=== PATIENT | female | born 1960 | race Caucasian/White ===

== ENCOUNTER 2023-03-04 11:14 | Outpatient (CLI) | payer OTHER, SELFPAY ==
--- NOTE | ~2023-03-04 | XR_ITS ---
AP and lateral views of the right tibia/fibula Clinical History: Pain Findings: No acute fracture or dislocation is seen. Tibial intramedullary adriana with distal and proxima l interlocking screws is present. Old, healed fracture deformities of the distal fibular and tibial s hafts are present.. Joint spaces are preserved without significant erosive or degenerative change. So ft tissues are unremarkable. Impression: No acute abnormality. Old, healed fractures of the tibia and fibula, as noted above, with tibial orthopedic hardware in thony ce. Reviewed, dictated and finalized at location M. Impression: No acute abnormality. Old, healed fractures of the tibia and fibula, as noted above, with tibial orth opedic hardware in place.
--- NOTE | ~2023-03-04 | XR_ITS ---
Right Knee Technique: AP, lateral, and sunrise views were obtained. Clinical History: Pain Findings: No fracture or dislocation is seen. There is orthopedic hardware at the proximal tibia Osse ous alignment is anatomic. Joint spaces are preserved without degenerative or erosive change. Soft ti ssues are unremarkable. No joint effusion is seen. Impression: No acute abnormality. Orthopedic hardware the proximal tibia. Correlate with surgical history. Reviewed, dictated and finalized at location . Impression: No acute abnormality. Orthopedic hardware the proximal tibia. Correlate with surgical history.
[2023-03-04 19:02] LABS: Basophils Absolute Auto 0.1 K/mm3 (0.0-0.1); Basophils Percent Auto 1.1 % (0.2-1.2); Eosinophils Absolute Auto 0.1 K/mm3 (0-0.3); Eosinophils Percent Auto 1.3 % (0-4.4); Hematocrit 47.1 % (37.0-47.0); Hemoglobin 15.1 g/dL (12.0-15.0); Lymphocytes Absolute Auto 1.46 K/mm3 (0.9-3.2); Lymphocytes Percent Auto 31.3 % (18.3-44.2); Mean Corpuscular HGB Conc 32.1 g/dl (32-36); Mean Corpuscular Hemoglobin 29.4 pg (26-34); Mean Corpuscular Volume 91.6 fl (80-100); Mean Platelet Volume 10.4 fl (7.4-10.4); Monocytes Absolute Auto 0.5 K/mm3 (0.1-0.6); Monocytes Percent Auto 10.9 % (2.6-8.5); Neutrophils Absolute Auto 2.6 K/mm3 (1.3-6.7); Neutrophils Percent Auto 55.4 % (45.5-73.1); Platelet Count Result 209 k/mm3 (150-375); Red Blood Count 5.14 M/mm3 (4.2-5.4); Red Cell Distribution Width 13.9 % (11.5-14.5); White Blood Count 4.7 K/mm3 (4.5-10.0)
[2023-03-04 19:49] LABS: Alanine Aminotransferase 24 U/L (6-35); Albumin Level 4.8 g/dL (3.5-5.1); Alkaline Phosphatase 99 U/L (38-126); Anion Gap 7 mmol/L (8-16); Aspartate Amino Transferase 51 U/L (14-36); Bilirubin,Total 0.9 mg/dL (0.2-1.3); Blood Urea Nitrogen 10 mg/dL (7-17); Calcium 9.2 mg/dL (8.4-10.2); Carbon Dioxide 29 mmol/L (22-30); Chloride 100 mmol/L (98-107); Cholesterol 246 mg/dL (0-200); Estimated Glomerular Filt Rate > 60; Glucose 92 mg/dL (65-110); HDL Direct 55 mg/dL; Potassium 3.9 mmol/L (3.4-5.0); Sodium 136 mmol/L (137-145); Triglycerides 137 mg/dL (<150)
[2023-03-04 19:59] LABS: LDL Cholesterol Direct 139 mg/dL
[2023-03-04 22:04] LABS: Hemoglobin A1C 5.7 % (<5.7)
== END 2023-03-04 11:15 | disposition home or self-care (01) ==
LOC: ANHBWCLAB 11:15
PROVIDERS: PCP Family Medicine; Visit Provider Family Medicine
DX: M25.569 Pain in unspecified knee (principal); M89.8X6 Other specified disorders of bone, lower leg; R41.3 Other amnesia; R73.03 Prediabetes
CPT/HCPCS: 36415; 73562; 73590; 80053; 80061; 82607; 83036; 84443; 85025

== ENCOUNTER 2023-04-29 09:28 | Outpatient (CLI) | payer OTHER, SELFPAY ==
[2023-04-29 19:03] LABS: Basophils Absolute Auto 0.1 K/mm3 (0.0-0.1); Basophils Percent Auto 1.4 % (0.2-1.2); Eosinophils Absolute Auto 0.1 K/mm3 (0-0.3); Eosinophils Percent Auto 2.4 % (0-4.4); Hematocrit 45.9 % (37.0-47.0); Hemoglobin 14.6 g/dL (12.0-15.0); Immature Granulocyte Absolute 0.01 K/mm3 (0.00-0.031); Immature Granulocyte Percent A 0.2 % (0-0.5); Lymphocytes Absolute Auto 1.32 K/mm3 (0.9-3.2); Lymphocytes Percent Auto 31.1 % (18.3-44.2); Mean Corpuscular HGB Conc 31.8 g/dl (32-36); Mean Corpuscular Hemoglobin 28.9 pg (26-34); Mean Corpuscular Volume 90.9 fl (80-100); Mean Platelet Volume 10.3 fl (7.4-10.4); Monocytes Absolute Auto 0.5 K/mm3 (0.1-0.6); Monocytes Percent Auto 11.5 % (2.6-8.5); Neutrophils Absolute Auto 2.3 K/mm3 (1.3-6.7); Neutrophils Percent Auto 53.4 % (45.5-73.1); Platelet Count Result 192 k/mm3 (150-375); Red Blood Count 5.05 M/mm3 (4.2-5.4); Red Cell Distribution Width 14.1 % (11.5-14.5); White Blood Count 4.3 K/mm3 (4.5-10.0)
[2023-04-29 20:59] LABS: Alanine Aminotransferase 23 U/L (6-35); Albumin Level 4.2 g/dL (3.5-5.1); Alkaline Phosphatase 84 U/L (38-126); Aspartate Amino Transferase 47 U/L (14-36); Bilirubin,Total 0.6 mg/dL (0.2-1.3)
[2023-04-29 21:06] LABS: Iron 133 ug/dL (37-170)
[2023-04-29 21:16] LABS: Percent Iron Saturation 37 % (20-50)
== END 2023-04-29 09:29 | disposition home or self-care (01) ==
PROVIDERS: PCP Family Medicine; Visit Provider Family Medicine
DX: D75.1 Secondary polycythemia (principal); R74.01 Elevation of levels of liver transaminase levels; G62.9 Polyneuropathy, unspecified; R73.03 Prediabetes
CPT/HCPCS: 36415; 80076; 83540; 83550; 85025

== ENCOUNTER 2023-04-30 08:29 | Outpatient (CLI) | payer OTHER, SELFPAY ==
--- NOTE | ~2023-04-30 | US_ITS ---
US arterial ankle brachial ind INDICATION: Polyneuropathy TECHNIQUE: Segmental pressures and plethysmographic and Doppler waveforms of the brachial and lower e xtremity arteries were obtained. COMPARISON: None. FINDINGS: Right and left brachial artery pressures of 134 mm Hg and 135 mm Hg, respectively, are concordant (no rmal difference <= 30 mmHg). The right ankle-brachial index (BUZZ) is 1.06 (normal >= 0.9-1.0). The right great toe-brachial index (TBI) is 0.73 (normal >= 0.60). The left BUZZ is 1.19. The left TBI is 0.7. IMPRESSION: 1. Normal bilateral ankle and toe brachial indices. Reviewed, dictated and finalized at location L.
== END 2023-04-30 08:30 | disposition home or self-care (01) ==
PROVIDERS: PCP Family Medicine; Visit Provider Family Medicine
DX: G62.9 Polyneuropathy, unspecified (principal)
CPT/HCPCS: 93922

== ENCOUNTER 2023-06-24 16:45 | Emergency (ER) | payer MEDICARE, SELFPAY ==
--- NOTE | ~2023-06-24 | XR_ITS ---
EXAMINATION: XR foot RT min 3V DATE: 06/24/2023 17:15 INDICATION: Right foot injury. Fall. TECHNIQUE: 4 views of right foot were obtained. COMPARISON: None. FINDINGS: Bone alignment is normal. There is adriana and screw fixation of distal tibia and fibula. There is an old healed fracture of distal fibula. There is mild osteoarthritis of first metatarsophalangea l joint and some of the interphalangeal joints. There are enthesophytes at the posterior and plantar aspects of calcaneal tuberosity. IMPRESSION: 1. Mild polyarticular osteoarthritis. Reviewed, dictated and finalized at location A.
--- NOTE | ~2023-06-24 | XR_ITS ---
EXAM: XR knee RT min 4V DATE: 06/24/2023 17:16 HISTORY: fall . COMPARISON: None available. FINDINGS: Partially visualized uncomplicated appearing proximal tibial fixation hardware. Decreased mineralization. No fracture or dislocation. No lytic or blastic lesion. Joint spaces are maintained. No erosion or periosteal change. Soft tissues within normal limits. IMPRESSION: No acute osseous finding in the right knee. Reviewed, dictated and finalized at location K.
--- NOTE | ~2023-06-24 | XR_ITS ---
EXAM: XR wrist RT min 3V DATE: 06/24/2023 17:16 HISTORY: fall . COMPARISON: None available. FINDINGS: Normal mineralization. No fracture or dislocation. No lytic or blastic lesion. Partially v isualized uncomplicated appearing radial fixation hardware. Scattered degenerative changes. Slight po sitive ulnar variance. No erosion or periosteal change. Soft tissues within normal limits. IMPRESSION: No acute osseous finding in the right wrist. Reviewed, dictated and finalized at location K.
[2023-06-24 16:46] VITALS: BP 147/67; PULSE 74; RESP 18; TEMP 36.8; O2SAT 100
--- NOTE | 2023-06-24 17:35 | ED.GENADULT ---
HPI - General Adult General Chief complaint: Fall Stated complaint: fall/ right sided injuries Time Seen by Provider: 06/24/23 17:01 Source: patient Mode of arrival: ambulatory Limitations: no limitations History of Present Illness HPI narrative: This is a 62-year-old female who presents to the ED with chief complaint of a mechanical fall that occurred just prior to arrival this afternoon. Patient states that she was leaning over her 2 foot fence on her back patio and when she stepped over her foot got caught. She states that she fell onto the right side on the ground. She reports having right wrist pain, right knee pain, right foot pain. Reports that she was able to ambulate but it does cause pain. Denies numbness, weakness, further site of pain or injury Denies any LOC, head injury or blood thinner use. Related Data Home Medications Medication Instructions Recorded Confirmed tafluprost (PF) 0.0015 % eye drops 1 drp EACH EYE DAILY 06/05/23 in a dropperette (Zioptan (PF)) Allergies Allergy/AdvReac Type Severity Reaction Status Date / Time codeine Allergy Intermediate FAINTING Verified 06/05/23 10:45 procaine Allergy Intermediate Jittery Verified 06/05/23 10:45 pseudoephedrine Allergy Unknown DECONGESTANTS Verified 06/05/23 10:45 CAUSE RAPID HEART RATE meperidine AdvReac Intermediate NAUSEA/VOMI Verified 06/05/23 10:45 TING Review of Systems Review of Systems: All systems as dictated in HPI PMFSH Past Medical History Medical History (Updated 06/24/23 @ 18:14 by Leonard Pederson PA-C) History of vaginal delivery Primary open angle glaucoma Seasonal allergies Surgical History Surgical History (Updated 06/05/23 @ 10:50 by Margie Hernandez MA) History of ankle surgery History of dilation and curettage Hx of knee surgery [place] teeth removed Family History Family History Father Diabetes mellitus Grandparent Asthma Hypertension Heart disease Grandparent Depression Social History Social History (Updated 06/05/23 @ 10:50 by Margie Hernandez MA) Smoking status: Never smoker Alcohol intake: current Alcohol use details: wine Substance use: never Substance use type: does not use Lack of Transportation: No Lack of Food: Never True Current Housing: I Have Housing Concerned About Future Housing: No Difficulty Paying Gas/Electric Bills: No Difficulty Paying for Meds: No Currently Unemployed: No Education: Decline to Answer Difficulty w/ Childcare or Family Care: No Living arrangements: with family Occupation/Education: retired Gender identity (if verbalized by the patient): Female Sexual Orientation (if Verbalized by the Patient): Straight or Heterosexual Spiritual care concerns: No Exam Narrative: GENERAL: Well-appearing, well-nourished, and in no acute distress. HEAD: Normocephalic, atraumatic. EYES: PERRLA and EOMI. ENT: Nares clear, no rhinorrhea or epistaxis. Mucous membranes moist. Oropharynx without tonsillar hypertrophy exudate or other lesions. NECK: Supple. No adenopathy or masses. CHEST: No respiratory distress. Clear to auscultation. No wheezes rales or rhonchi HEART: Regular rate and rhythm. No murmur heard. Normal peripheral pulses. ABDOMEN: Soft, nontender, nondistended, normal active bowel sounds. MSK: RUE: Right wrist tenderness. No bruising or deformity. No anatomical snuffbox tenderness. Full range of motion of the right hand and wrist. LUE: Benign. RLE: Tenderness throughout the right right knee and dorsum of the right foot. No bruising or deformity throughout the lower extremity. Mild swelling at the knee. Full range of motion of the right knee and right ankle. LLE: Benign. SKIN: Mild abrasion to the left knee. Skin exam is otherwise intact with no bruising. NEURO: Alert and oriented x3. No focal deficits. PSYCH: Normal mood and
== END 2023-06-24 18:52 | disposition home or self-care (01) ==
PROVIDERS: Emergency Provider Physician Assistant; PCP Family Medicine
DX: S69.91XA Unspecified injury of right wrist, hand and finger(s), initial encounter (principal); S89.91XA Unspecified injury of right lower leg, initial encounter; S99.921A Unspecified injury of right foot, initial encounter; M19.071 Primary osteoarthritis, right ankle and foot; W18.09XA Striking against other object with subsequent fall, initial encounter
CPT/HCPCS: 73110; 73564; 73630; 99284

== ENCOUNTER 2023-08-23 01:26 | Day surgery (SDC) | payer MEDICARE, SELFPAY ==
[2023-08-14 13:46] VITALS: BMI 32.0
--- NOTE | 2023-08-22 15:27 | PM.HPGS ---
History of Present Illness History of Present Illness Consent: Risks, benefits, and alternatives have been discussed and questions answered. Patient agrees to proceed with procedure. Chief complaint: neoplasm screening Narrative: Lacey Madrigal is a 63 year old female Referred for colon cancer screening. Review of Systems Review of Systems: All systems reviewed & are unremarkable except as noted in HPI and below PMFSH Past Medical History Medical History History of vaginal delivery Primary open angle glaucoma Seasonal allergies Surgical History Surgical History History of ankle surgery History of dilation and curettage Hx of knee surgery [place] teeth removed Family History Family History Father Diabetes mellitus Grandparent Asthma Hypertension Heart disease Grandparent Depression Social History Social History Smoking packs per day: 1 Smoking cigarettes per day: 20.0 Years smoked: 2 Smoking pack-years: 2.00 Smoking status: Former smoker Alcohol intake: current Alcohol use details: 1 per month Substance use: never Substance use type: does not use Lack of Transportation: No Lack of Food: Never True Current Housing: I Have Housing Concerned About Future Housing: No Difficulty Paying Gas/Electric Bills: No Difficulty Paying for Meds: No Currently Unemployed: No Education: Decline to Answer Difficulty w/ Childcare or Family Care: No Living arrangements: with family Occupation/Education: retired Gender identity (if verbalized by the patient): Female Sexual Orientation (if Verbalized by the Patient): Straight or Heterosexual Spiritual care concerns: No Meds Home Medications and Allergies Home Medications Medication Instructions Recorded Confirmed Type tafluprost (PF) 0.0015 % eye drops 1 drp EACH EYE DAILY 06/05/23 08/14/23 History in a dropperette (Zioptan (PF)) ascorbic acid (vitamin C) 500 mg 500 mg PO DAILY 08/14/23 08/14/23 History tablet berberine-herbal comb no.18 capsule 1 cap PO DAILY 08/14/23 08/14/23 History cholecalciferol (vitamin D3) 50 50 mcg PO DAILY 08/14/23 08/14/23 History mcg (2,000 unit) capsule (Vitamin D3) tumeric 100 mg-francia 150 mg-olive 1 cap PO DAILY 08/14/23 08/14/23 History 50 mg-oreg 150 mg-caprylate capsule Allergies Allergy/AdvReac Type Severity Reaction Status Date / Time codeine Allergy Intermediate FAINTING Verified 08/23/23 11:13 procaine Allergy Intermediate Jittery Verified 08/23/23 11:13 pseudoephedrine Allergy Unknown DECONGESTANTS Verified 08/23/23 11:13 CAUSE RAPID HEART RATE lidocaine Allergy Jittery Verified 08/23/23 11:13 meperidine AdvReac Intermediate NAUSEA/VOMI Verified 08/23/23 11:13 TING Exam Resp: Auscultation: clear to auscultation bilaterally Cardio: Rate: regular rate Rhythm: regular rhythm GI: GI Palp: Yes Soft to palpation and No Tenderness to palpation present (GI) Assessment and Plan Assessment and plan (1) Colon cancer screening: Code(s): Z12.11 - Encounter for screening for malignant neoplasm of colon Status: Acute Assessment and Plan: Colonoscopy with possible biopsy or polypectomy or cautery or injection of substances.
[2023-08-23 11:17] VITALS: BP 141/78; PULSE 80; RESP 16; TEMP 36.4; O2SAT 98
[2023-08-23] MEDS: LACTATED RINGERS 1,000 ML 150 ML IV CONT (11:42)
--- NOTE | 2023-08-23 12:26 | WPDANESEPPF ---
Anes - Initial Pre Proc Eval Procedure: Operation Date: 08/23/23 12:30 Proposed Procedures p Screening Colonoscopy - Curt Thompson MD Date/Time: 08/23/23 12:26 Surgeon: Curt Thompson MD Pre Op Diagnosis: neoplasm screening Patient Data Age: 63 Gender: F Height: 1.6 m Weight: 78.6 kg Last Vital Signs Temp 97.6 F 08/23/23 11:17 Pulse 80 08/23/23 11:17 Resp 16 08/23/23 11:17 BP 141/78 H 08/23/23 11:17 Pulse Ox 98 08/23/23 11:17 O2 Del Method Room Air 08/23/23 11:17 Allergies Allergy/AdvReac Type Severity Reaction Status Date / Time codeine Allergy Intermediate FAINTING Verified 08/23/23 11:13 procaine Allergy Intermediate Jittery Verified 08/23/23 11:13 pseudoephedrine Allergy Unknown DECONGESTANTS Verified 08/23/23 11:13 CAUSE RAPID HEART RATE lidocaine Allergy Jittery Verified 08/23/23 11:13 meperidine AdvReac Intermediate NAUSEA/VOMI Verified 08/23/23 11:13 TING Home Medications Medication Instructions Recorded Confirmed Type tafluprost (PF) 0.0015 % eye drops 1 drp EACH EYE DAILY 06/05/23 08/14/23 History in a dropperette (Zioptan (PF)) ascorbic acid (vitamin C) 500 mg 500 mg PO DAILY 08/14/23 08/14/23 History tablet berberine-herbal comb no.18 capsule 1 cap PO DAILY 08/14/23 08/14/23 History cholecalciferol (vitamin D3) 50 50 mcg PO DAILY 08/14/23 08/14/23 History mcg (2,000 unit) capsule (Vitamin D3) tumeric 100 mg-francia 150 mg-olive 1 cap PO DAILY 08/14/23 08/14/23 History 50 mg-oreg 150 mg-caprylate capsule Patient hx anesthesia problems: none Family hx anesthesia problems: none Results Review: All pre-operative results and documents have been reviewed as part of the pre-operative evaluation. [facility] Past Medical History Medical History History of vaginal delivery Primary open angle glaucoma Seasonal allergies Surgical History Surgical History History of ankle surgery History of dilation and curettage Hx of knee surgery [place] teeth removed Family History Family History Father Diabetes mellitus Grandparent Asthma Hypertension Heart disease Grandparent Depression Social History Social History Smoking packs per day: 1 Smoking cigarettes per day: 20.0 Years smoked: 2 Smoking pack-years: 2.00 Smoking status: Former smoker Alcohol intake: current Alcohol use details: 1 per month Substance use: never Substance use type: does not use Lack of Transportation: No Lack of Food: Never True Current Housing: I Have Housing Concerned About Future Housing: No Difficulty Paying Gas/Electric Bills: No Difficulty Paying for Meds: No Currently Unemployed: No Education: Decline to Answer Difficulty w/ Childcare or Family Care: No Living arrangements: with family Occupation/Education: retired Gender identity (if verbalized by the patient): Female Sexual Orientation (if Verbalized by the Patient): Straight or Heterosexual Spiritual care concerns: No Anes - Eval Final PreProcedure Day of Procedure 08/23/23 12:26 Patient weight: obese Heart: regular rate and rhythm Lungs: clear to auscultation Airway: Mallampati scale class II Neurological: alert and oriented Last oral intake: >/= 8 hours ASA classification: III Emergent: no Anesthetic plan: proceed Anesthesia type and monitoring: general GIVS and standard monitoring Results Review: All pre-operative results and documents have been reviewed as part of the pre-operative evaluation. Informed Consent: The patient's anesthetic plan and its attendant risks and benefits were discussed with the patient/family/POA. Questions were solicited and answers provided to the satisfaction of the patient/family/POA.
[2023-08-23 12:47] VITALS: BP 87/45; PULSE 74; RESP 21; O2SAT 99
[2023-08-23 12:57] VITALS: BP 100/54; PULSE 75; RESP 18; O2SAT 100
[2023-08-23 13:07] VITALS: BP 101/59; PULSE 55; RESP 16; O2SAT 100
== END 2023-08-23 13:15 | disposition home or self-care (01) ==
PROVIDERS: PCP Family Medicine; Visit Provider Internal Medicine Gastroenterology
PROC: 0DJD8ZZ Inspection of Lower Intestinal Tract, Via Natural or Artificial Opening Endoscopic (ICD-10-PCS; CPT 45378; principal; 2023-08-23 12:30)
DX: Z12.11 Encounter for screening for malignant neoplasm of colon (principal); K64.8 Other hemorrhoids; K57.30 Diverticulosis of large intestine without perforation or abscess without bleeding; Z86.010 Personal history of colon polyps; H40.1190 Primary open-angle glaucoma, unspecified eye, stage unspecified; Z87.891 Personal history of nicotine dependence; E66.9 Obesity, unspecified; Z68.30 Body mass index [BMI] 30.0-30.9, adult
CPT/HCPCS: G0105; J2371; J2704; J7120

== ENCOUNTER 2023-11-04 10:17 | Outpatient (CLI) | payer MEDICARE, SELFPAY ==
--- NOTE | ~2023-11-04 | XR_ITS ---
Right foot Technique: AP, oblique, and lateral views were obtained. Clinical History: Pain Findings: No acute fracture or dislocation is seen. Osseous alignment is anatomic. Joint spaces are p reserved without erosive or degenerative change. Soft tissues are unremarkable. Impression: Unremarkable right foot radiographs. Reviewed, dictated and finalized at location . ING PULLER Impression: Unremarkable right foot radiographs.
[2023-11-04 19:46] LABS: Hematocrit 47.6 % (37.0-47.0); Mean Corpuscular HGB Conc 31.5 g/dl (32-36); Mean Corpuscular Hemoglobin 28.6 pg (26-34); Mean Corpuscular Volume 90.7 fl (80-100); Mean Platelet Volume 10.3 fl (7.4-10.4); Platelet Count Result 194 k/mm3 (150-375); Red Blood Count 5.25 M/mm3 (4.2-5.4); Red Cell Distribution Width 13.6 % (11.5-14.5); White Blood Count 4.9 K/mm3 (4.5-10.0)
[2023-11-04 20:24] LABS: Alanine Aminotransferase 40 U/L (6-35); Albumin Level 4.5 g/dL (3.5-5.1); Alkaline Phosphatase 112 U/L (38-126); Anion Gap 4 mmol/L (8-16); Aspartate Amino Transferase 43 U/L (14-36); Bilirubin,Total 0.8 mg/dL (0.2-1.3); Blood Urea Nitrogen 10 mg/dL (7-17); Calcium 9.5 mg/dL (8.4-10.2); Carbon Dioxide 29 mmol/L (22-30); Chloride 103 mmol/L (98-107); Estimated Glomerular Filt Rate > 60; Glucose 99 mg/dL (65-110); Potassium 4.6 mmol/L (3.4-5.0); Sodium 136 mmol/L (137-145)
[2023-11-04 20:29] LABS: Hepatitis B Surface Antigen Negative (Negative)
[2023-11-04 20:35] LABS: HAV RESULT Negative (Negative); Hepatitis B Core IgM Result Negative (Negative)
[2023-11-04 20:47] LABS: Hepatitis C Virus Antibody Negative (Negative)
== END 2023-11-04 10:18 | disposition home or self-care (01) ==
PROVIDERS: PCP Family Medicine; Visit Provider Family Medicine
DX: D75.1 Secondary polycythemia (principal); G62.9 Polyneuropathy, unspecified; R73.03 Prediabetes; R74.01 Elevation of levels of liver transaminase levels; Z98.890 Other specified postprocedural states; M79.671 Pain in right foot
CPT/HCPCS: 36415; 73630; 80053; 80074; 83036; 85027

== ENCOUNTER 2024-03-30 12:17 | Outpatient (CLI) | payer MEDICARE, SELFPAY ==
[2024-03-30 19:18] LABS: Hematocrit 47.5 % (37.0-47.0); Mean Corpuscular HGB Conc 31.6 g/dl (32-36); Mean Corpuscular Hemoglobin 28.8 pg (26-34); Mean Corpuscular Volume 91.2 fl (80-100); Mean Platelet Volume 10.4 fl (7.4-10.4); Platelet Count Result 193 k/mm3 (150-375); Red Blood Count 5.21 M/mm3 (4.2-5.4); Red Cell Distribution Width 14.1 % (11.5-14.5); White Blood Count 5.7 K/mm3 (4.5-10.0)
[2024-03-30 19:49] LABS: Alanine Aminotransferase 19 U/L (6-35); Albumin Level 4.8 g/dL (3.5-5.1); Alkaline Phosphatase 97 U/L (38-126); Anion Gap 6 mmol/L (4-12); Aspartate Amino Transferase 36 U/L (14-36); Blood Urea Nitrogen 12 mg/dL (7-17); Calcium 9.9 mg/dL (8.4-10.2); Carbon Dioxide 29 mmol/L (22-30); Chloride 103 mmol/L (98-107); Cholesterol 237 mg/dL (0-200); Estimated Glomerular Filt Rate > 60; Glucose 101 mg/dL (65-110); HDL Direct 66 mg/dL; Potassium 4.2 mmol/L (3.4-5.0); Sodium 138 mmol/L (137-145); Triglycerides 121 mg/dL (<150)
[2024-03-30 20:00] LABS: LDL Cholesterol Direct 139 mg/dL
[2024-03-30 20:29] LABS: Hemoglobin A1C 5.8 % (<5.7)
[2024-03-30 20:40] LABS: Vitamin D 25 Hydroxy 41.2 ng/mL
== END 2024-03-30 12:18 | disposition home or self-care (01) ==
PROVIDERS: PCP Family Medicine; Visit Provider Family Medicine
DX: D75.1 Secondary polycythemia (principal); G62.9 Polyneuropathy, unspecified; R00.2 Palpitations; R41.3 Other amnesia; R73.03 Prediabetes; R74.01 Elevation of levels of liver transaminase levels; Z00.00 Encounter for general adult medical examination without abnormal findings; E55.9 Vitamin D deficiency, unspecified
CPT/HCPCS: 36415; 80053; 80061; 82306; 83036; 85027

== ENCOUNTER 2024-04-30 15:13 | Outpatient (CLI) | payer MEDICARE, SELFPAY ==
--- NOTE | ~2024-04-30 | XR_ITS ---
Cervical Spine: AP, lateral, open-mouth views Clinical History: Pain Findings: There is straightening of the normal cervical lordosis. No fracture or subluxation seen. Th ere is moderate to advanced degenerative disc narrowing at C4-C5, C5-C6, C6-C7. There is moderate to advanced facet arthropathy throughout the cervical spine. Pre-vertebral soft tissues are unremarkable . Impression: Moderate degenerative spondylosis, as detailed above. Reviewed, dictated and finalized at location M. Impression: Moderate degenerative spondylosis, as detailed above.
--- NOTE | ~2024-04-30 | XR_ITS ---
Lumbosacral Spine: AP and lateral views Clinical History: Pain Findings: The normal lordotic curve is maintained. No fracture or subluxation seen. There is advanced degenerative disc narrowing at L4-L5. There is advanced facet arthropathy throughout the lumbar spin e. The sacroiliac joints are normally outlined. Impression: Diffuse, advanced facet arthropathy. Advanced degenerative disc narrowing at L4-L5. Reviewed, dictated and finalized at location . Impression: Diffuse, advanced facet arthropathy. Advanced degenerative disc narrowing at L4-L5.
--- NOTE | ~2024-04-30 | XR_ITS ---
AP and lateral views of the left hip Clinical history: Pain Findings: No acute fracture or dislocation is seen. Osseous alignment is anatomic. Bilateral hip and SI joint spaces are preserved. Soft tissues are unremarkable. Impression: No significant abnormality is seen. Reviewed, dictated and finalized at location . Impression: No significant abnormality is seen.
== END 2024-04-30 15:14 | disposition home or self-care (01) ==
PROVIDERS: PCP Family Medicine; Visit Provider Family Medicine
DX: G62.9 Polyneuropathy, unspecified (principal); R00.2 Palpitations; R41.3 Other amnesia; R73.03 Prediabetes; R74.01 Elevation of levels of liver transaminase levels; M54.2 Cervicalgia; D75.1 Secondary polycythemia
CPT/HCPCS: 72040; 72100; 73502

== ENCOUNTER 2024-07-29 11:45 | Outpatient (CLI) | payer MEDICARE, SELFPAY ==
--- NOTE | ~2024-07-29 | CT_ITS ---
EXAMINATION: CT cervical spine wo con DATE: 07/29/2024 11:59 INDICATION: Neck pain. TECHNIQUE: Computed tomography (CT) of the cervical spine was performed without intravenous contrast. Automated exposure control and iterative reconstruction technique were employed. The dose-length pro duct was 249.82 mGy-cm. COMPARISON: Cervical spine radiograph 04/30/2024 FINDINGS: There is 5 degrees levocurvature of cervical spine. There is hypolordosis of cervical spine . Vertebral body heights are normal. There is mildly decreased disc height at C4-C5 and moderately de creased disc height at C5-C6 and C6-C7. The following disc levels are specifically discussed: C2-C3: There is no uncovertebral joint osteoarthritis. There is moderate right and severe left facet joint osteoarthritis. There is mild left neural foraminal stenosis. There is no central canal stenosi s. C3-C4: There is mild bilateral uncovertebral joint osteoarthritis. There is severe bilateral facet carol int osteoarthritis. There is mild bilateral neural foraminal stenosis. There is no central canal sten osis. C4-C5: There is mild bilateral uncovertebral joint osteoarthritis. There is mild right and severe lef t facet joint osteoarthritis. There is mild left neural foraminal stenosis. There is no central canal stenosis. C5-C6: There is severe right and mild left uncovertebral joint osteoarthritis. There is severe bilate ral facet joint osteoarthritis. There is moderate right and mild left neural foraminal stenosis. Ther e is mild central canal stenosis. C6-C7: There is severe bilateral uncovertebral joint osteoarthritis. There is mild bilateral facet carol int osteoarthritis. There is mild bilateral neural foraminal stenosis. There is mild central canal st enosis. C7-T1: There is no uncovertebral joint osteoarthritis. There is moderate right and mild left facet carol int osteoarthritis. There is no neural foraminal stenosis. There is no central canal stenosis. IMPRESSION: 1. Moderate cervical spondylosis. Reviewed, dictated and finalized at location A.
== END 2024-07-29 11:46 | disposition home or self-care (01) ==
LOC: MICIMG 11:46
PROVIDERS: PCP Family Medicine; Visit Provider Family Medicine
DX: G62.9 Polyneuropathy, unspecified (principal); M47.892 Other spondylosis, cervical region
CPT/HCPCS: 72125

== ENCOUNTER 2024-11-09 12:39 | Outpatient (CLI) | payer MEDICARE, SELFPAY ==
--- NOTE | ~2024-11-09 | MR_ITS ---
EXAMINATION: MR knee RT wo con DATE: 11/09/2024 13:34 INDICATION: Right knee pain TECHNIQUE: Magnetic resonance imaging (MRI) of the right knee was performed without intravenous contr ast. Sequences included coronal PD-weighted FSE, coronal PD-weighted FS FSE, sagittal T2-weighted FS E, sagittal PD-weighted FS FSE, axial fluid sensitive FSE STIR and axial PD weighted fat saturated FS E. COMPARISON: Radiographs dated 06/24/2023 FINDINGS: Osseous/other: There is metallic magnetic field artifact associated with a lateral to medially directed fixation scr ew underlying the tibial plateau and an antegrade intramedullary adriana with pair of obliquely directed interlocking screws at the proximal metaphyseal region extending distally into the nonvisualized diap hysis. Bone alignment is normal. No fracture or pathologic marrow replacing process. There are foci o f susceptibility artifact indicates along the margin of the suprapatellar pouch likely related to denise or surgery. Medial compartment: Medial meniscus is normal. There is diffuse mild partial-thickness cartilage loss with smooth chondra l surface and without degenerative subchondral changes along the medial tibial plateau and the medial femoral condyle. Lateral compartment: Lateral meniscus is normal. Mild partial-thickness cartilage loss throughout the weightbearing latera l femoral condyle with mild chondral surface regularity anteromedially. Patellofemoral compartment: Articular cartilage is normal. Ligaments and tendons: Anterior and posterior cruciate ligaments are normal. The medial collateral ligament and fibular mukesh ateral ligament complex are normal. Mild distal quadriceps enthesopathy without tear. The patellar te ndon is normal. The visualized medial and lateral hamstring tendons as well as the iliotibial band ar e normal. Fluid: Physiologic amount of fluid in the joint space. No loose osteochondral bodies identified. IMPRESSION: 1. Mild osteoarthritis in medial and patellofemoral compartment 2. Postoperative changes with internal fixation at the right tibia presumably for fixation of an old healed tibial fracture. Reviewed, dictated and finalized at location B. ECTIONAL MAINTENANCE TECHNICIAN IMPRESSION: 1. Mild osteoarthritis in medial and patellofemoral compartment 2. Postoperative changes with internal fixation at the right tibia presumably f or fixation of an old healed tibial fracture.
== END 2024-11-09 12:40 | disposition home or self-care (01) ==
LOC: GOSHIMG 12:39
PROVIDERS: PCP Family Medicine; Visit Provider Family Medicine
DX: M17.11 Unilateral primary osteoarthritis, right knee (principal)
CPT/HCPCS: 73721

== ENCOUNTER 2024-11-09 12:40 | Outpatient (CLI) | payer MEDICARE, SELFPAY ==
--- NOTE | ~2024-11-09 | MR_ITS ---
EXAMINATION: MR lumbar spine wo con DATE: 11/09/2024 13:59 INDICATION: Radiculopathy, lumbar region. TECHNIQUE: Magnetic resonance imaging (MRI) of the lumbar spine was performed without intravenous con trast. Sequences included sagittal T2-weighted FSE, sagittal T2-weighted FS FSE, sagittal T1-weighted FSE, and axial T2-weighted FSE. COMPARISON: Lumbar spine radiograph 04/30/2024 FINDINGS: There is 3 degrees dextrocurvature of lumbar spine. Vertebral body heights are normal. Ther e is moderately decreased disc height at L4-L5. The distal spinal cord signal intensity is normal. Th e conus medullaris is at L1. The following disc levels are specifically discussed: L1-L2: The disc does not extend beyond the endplate margin. There is mild bilateral facet joint osteo arthritis. There is no neural foraminal stenosis. There is no central canal stenosis. L2-L3: The disc is mildly bulging. There is mild bilateral facet joint osteoarthritis. There is mild bilateral neural foraminal stenosis. There is no central canal stenosis. L3-L4: The disc is bulging. There is severe right and moderate left facet joint osteoarthritis. There is mild lateral neural foraminal stenosis. There is mild central canal stenosis. L4-L5: The disc is bulging and has an annular fissure. There is mild bilateral facet joint osteoarthr itis. There is mild bilateral neural foraminal stenosis. There is mild central canal stenosis. L5-S1: The disc does not extend beyond the endplate margin. There is moderate right and severe left f acet joint osteoarthritis. There is no neural foraminal stenosis. There is no central canal stenosis. IMPRESSION: 1. Moderate lumbar spondylosis. Reviewed, dictated and finalized at location A. ICAL WRITER
--- NOTE | ~2024-11-09 | MR_ITS ---
EXAMINATION: MR cervical spine wo con DATE: 11/09/2024 13:53 INDICATION: Radiculopathy, cervical region. TECHNIQUE: Magnetic resonance imaging (MRI) of the cervical spine was performed without intravenous c ontrast. Sequences included sagittal T2-weighted FSE, sagittal T2-weighted FS FSE, sagittal T1-weight ed FSE, axial MERGE, and axial T2-weighted FSE. COMPARISON: Cervical spine CT 07/29/2024 FINDINGS: There is 2 mm retrolisthesis of C5 on C6. Vertebral body heights are normal. There is mildl y decreased disc height at C5-C6 and moderately decreased disc height at C6-C7. The spinal cord signa l intensity is normal. The following disc levels are specifically discussed: C2-C3: The disc does not extend beyond the endplate margin. There is no uncovertebral joint osteoarth ritis. There is mild right and severe left facet joint osteoarthritis. There is mild left neural fora ethan stenosis. There is no central canal stenosis. C3-C4: The disc does not extend beyond the endplate margin. There is no uncovertebral joint osteoarth ritis. There is mild right and severe left facet joint osteoarthritis. There is mild left neural fora ethan stenosis. There is no central canal stenosis. C4-C5: The disc does not extend beyond the endplate margin. There is mild bilateral uncovertebral kasi nt osteoarthritis. There is severe left facet joint osteoarthritis. There is mild left neural foramin al stenosis. There is no central canal stenosis. C5-C6: The disc is bulging. There is severe bilateral uncovertebral joint osteoarthritis. There is mi ld bilateral facet joint osteoarthritis. There is severe right and moderate left neural foraminal mauri nosis. There is mild central canal stenosis. C6-C7: The disc is bulging. There is severe bilateral uncovertebral joint osteoarthritis. There is mi ld bilateral facet joint osteoarthritis. There is moderate bilateral neural foraminal stenosis. There is mild central canal stenosis. C7-T1: The disc does not extend beyond the endplate margin. There is no uncovertebral joint osteoarth ritis. There is mild right facet joint osteoarthritis. There is no neural foraminal stenosis. There i s no central canal stenosis. IMPRESSION: 1. Moderate cervical spondylosis. Reviewed, dictated and finalized at location A. [facility] [employer]
== END 2024-11-09 12:41 | disposition home or self-care (01) ==
LOC: GOSHIMG 12:42
PROVIDERS: Visit Provider Family Medicine
DX: M47.812 Spondylosis without myelopathy or radiculopathy, cervical region (principal); M47.816 Spondylosis without myelopathy or radiculopathy, lumbar region
CPT/HCPCS: 72141; 72148

== ENCOUNTER 2025-03-05 10:23 | Emergency (ER) | payer MEDICARE, SELFPAY ==
--- OUTSIDE RECORDS SUMMARY | 2025-03-05 10:29 | XMS_ITS | Referral Summary ---
Author Organization [place] [address] [place] [address] [address] [place] [address] Care Team Providers Care Yarn Mercerizer Operator Name Role Phone Jordan Thapa MD Unavailable [phone] Danielle Talbot OD Unavailable [phone] Lennox Alcala MD Unavailable [phone] Alexys Barr DC Unavailable Karla Alva MD Unavailable [phone] Jalen Gastelum MD Primary Care Provider [phone] Encounters Date Type Department Care Team Description 03/01/[address] [facility] Cardiology [address] [place] [address] [address] [place] [address] Sandie Lucio MD 02/15/2025 Results Follow-Up [facility] [address] [place] [address] [address] [place] [address] Sandie Lucio MD 02/11/2025 11:00 AM CDT Ancillary Procedure [facility] Cardiology at [address] [place] [address] History of mitral valve prolapse; Palpitations 02/08/2025 Telephone [facility] [address] [place] [address] [address] [place] [address] Sandie Lucio MD 02/05/[address] [facility] [address] [place] [address] Avis Montgomery RN 01/06/2025 1:15 PM EXECUTIVE CYBER LEADER Office Visit [facility] Cardiology [address] [place] [address] Sandie Lucio MD History of mitral valve prolapse (Primary Dx); Atypical chest pain; Hyperlipidemia LDL goal <100; Prediabetes; Palpitations from Last 3 Months Allergies Active Allergy Reactions Criticality Noted Date Comments Codeine Unknown Low Can take Hydrocodone; Doesn't recall reaction to Codeine Decongestant Allergy Decongestant Tablet Palpitations Medium 07/31/2023 Excedrin Ib Palpitations Low 11/14/2015 Lidocaine Dizziness High 05/20/2023 Meperidine Nausea only Low Preservative Other (See comments) Low Eyedrop/ preservative dries eye out Medications cholecalciferol , vitamin D3, (VITAMIN D3 ORAL)Indication s:prevent vitamin d deficiency Take 1 tablet by mouth every morning Active ascorbic acid (VITAMIN C ORAL)Indication s:Boost immune system Take 550 mg by mouth daily before lunch Melaluca brand- also had ecchinacia in it Active herbal drugs tablet Take by mouth Berberine 1 cap by mouth every morning (to clean cholesterol out of body) Active MAGNESIUM CHLORIDE ORAL Take 1,000 mg by mouth nightly Active TURMERIC ORALIndications :Pain Take 1 tablet by mouth daily as needed (Pain) Turmeric 500mg with Curcummin 500 mg Active aspirin 325 mg Take 1 tablet (325 mg total) by mouth daily as needed for pain Active latanoprost, PF, 0.005 % dropperetteIndi cations:ocular hypertension Administer 1 drop into both eyes nightly 30 each 11 10/28/20 23 Active aspirin 81 mg enteric coated tabletIndicatio ns:Atypical chest pain Take 1 tablet (81 mg total) by mouth daily 30 tablet 11 01/06/20 25 026 Active tafluprost (Zioptan, PF,) 0.0015 % dropperette INSTILL 1 DROP INTO EACH EYE FOR 3 DAYS THEN OFF FOR 2 DAYS. 60 each 03/01/20 25 Active tafluprost (Zioptan, PF,) 0.0015 % dropperette Instill 1 drop both eyes for 3 days then off for 2 days 55 each 3 10/17/20 23 025 Discontinued Active Problems Problem Noted Date Diagnosed Date Prediabetes 01/06/2025 Hyperlipidemia LDL goal <100 01/06/2025 History of mitral valve prolapse 01/06/2025 Palpitations 01/06/2025 Vision loss, bilateral 03/18/2024 Assessment & Plan (04/07/2024 5:17 PM CDT): History of bilateral and unilateral visual disturbance. Her ocular examination is unremarkable. Patient educated that this is likely vascular in nature, ie vertebrobasilar insufficiency. Pt ed to time future episodes, pt ed 20 min duration, monocular vision changes is c/w ophthalmic migraine. Patient educated on findings. Reviewed signs and symptoms of amaurosis in to see or urgent care if noted. Basal cell carcinoma (BCC) of left lower eyelid 07/31/2023 Assessment & Plan (10/01/2023 3:36 PM EXECUTIVE CYBER LEADER): Lacey Waters is doing well after Left Lower Eyelid Reconstruction - Left on 08/02/2023. She demonstrates excellent healing and has been released from my care and will follow up as needed. She has been instructed to continue comprehensive eye care and dermatology follow-up. Lesion of left lower eyelid 05/22/2023 Assessment & Plan (05/23/2023 5:21 PM CDT): Awaiting path report. Follow as scheduled with Dr. Darden Assessment & Plan (05/22/2023 6:27 PM CDT): Risks, benefits and alternatives were discussed. Risks included but were not limited to pain, bleeding, scarring, recurrence, and possible need for additional procedures. Following this discussion, the patient wishes to proceed with left lower lid (LLL) lesion excision and biopsy. This was performed today without any complications. We discussed the potential for this to represent a basal cell carcinoma (BCC) and we discussed the protocol for Mohs and same-day reconstruction following Mohs. We will contact the patient with the biopsy results and coordinate accordingly. Lesion of nose 03/05/2023 Assessment & Plan (03/05/2023 4:16 PM CDT): Some features concerning for basal cell carcinoma (BCC) on the left lateral aspect of her nose/LLL (where glasses nosepads rest) She has a smaller non pigmented lesion along the left nasolabial fold, recommend evaluation with Dr. Darden Subjective visual disturbance of right eye 07/02 Assessment & Plan (07/02/2022 3:44 PM CDT): Likely refractive vs early cataract/ mild epiretinal membrane (ERM) right eye (OD). PH did improve visual acuity (VA), so rec new refraction/ glasses. If no improvement (NI), consider retinal consult. Dry eye syndrome of both eyes 07/02/2022 Assessment & Plan (07/02/2022 3:49 PM CDT): Try oil based pres-free artif tear. Use as often as needed. Diverticulitis 03/29/2022 Assessment & Plan (03/29/2022 1:07 PM CDT): Liquid diet x 3 days; broth at the most. zofran PRN for nausea Stay hydrated CT ordered, as soon as we can get. Cipro and Flagyl course sent; if not tolerated, we can switch to Augmentin Epiretinal membrane (ERM) of right eye Assessment & Plan (07/02/2022 3:47 PM CDT): Order OCT today. Minimal. Monitor. If refraction does not improve subjective visual acuity (VA), consider retinal consult. 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 Glaucoma suspect of both eyes 07/13/2019 Assessment & Plan (04/07/2024 5:15 PM CDT): IOPs adequate, CPM Assessment & Plan (07/13/2019 1:23 PM CDT): Based on c:d and hx of oc htn. No e/o progressive disease. CPM with zioptan QHS OU. Impaired glucose tolerance 04/10/2018 Overview (04/10/2018): Prediabetes; Comments: OAC 01/28/2016 - Assessment & Plan (05/24/2021 3:57 PM CDT): Awaiting hemoglobin A1c Combined forms of age-related cataract of both e yes 07/17/2016 Assessment & Plan (04/07/2024 5:15 PM CDT): Defer cataract surgery until signs and symptoms indicate. Pt was educated on the diagnosis. Recommend daily UV protection. RTC 12 mo/sooner with any visual changes. Assessment & Plan (08/03/2021 11:16 AM CDT): No indication for surgery at this time. Pt to see outside provider for updated SRx. Assessment & Plan (07/31/2020 5:55 AM CDT): best-corrected visual acuity (BVA) remains good. Pt ed. Stressed importance of UV eye protection. Assessment & Plan (07/13/2019 1:24 PM CDT): Stable. Observe. Obtain SRx at [facility]. Pure hypercholesterolemia 04/03/2014 Overview (02/20/2017): PURE HYPERCHOLESTEROLEM Assessment & Plan (12/02/2021 1:18 PM EXECUTIVE CYBER LEADER): BP borderline Cholesterol has increased mildly. Reticence to take rx noted. Will look into berberine supplement. Recommend also a bit more effort on lowering simple carbohydrates and fats in diet Assessment & Plan (05/24/2021 3:57 PM CDT): Awaiting labs Age-related macular degeneration 04/03/2014 Overview (02/21/2017): MACULAR DEGENERATION NOS Borderline glaucoma with ocular hypertension 05/2011 Overview (08/03/2021): - per pt, intraocular pressure (IOP) in high 20 low 30s? Prior to tx - h/o normal OCT RNFL and full Alva visual field (HVF) - intraocular pressure (IOP) acceptable on 1 agent Assessment & Plan (05/23/2023 5:22 PM CDT): Visual field (VF) re-assuring. CPM. Assessment & Plan (05/14/2023 9:21 AM CDT): IOPs adequate for RNFL/optic nerve (ON), CPM, Alva visual field (HVF) next visit Assessment & Plan (07/02/2022 3:46 PM CDT): Order Alva visual field (HVF) today. Discussed options. Pt will ct zioptan nightly, 3 days on, 2 days off. Assessment & Plan (08/03/2021 11:26 AM CDT): Pt ed. IOPs at good range. Normal OCT RNFL today. Continue Zioptan Q3 days in a row, then off two, weekly. No FHx. Monitor annually. Assessment & Plan (07/31/2020 5:58 AM CDT): Test results re-assuring today - normal OCT and Alva visual field (HVF). Pt ed. IOPs at good range. Continue Zioptan Q3 days in a row, then off two, weekly. No FHx. Monitor annually. Assessment & Plan (07/13/2019 1:23 PM CDT): Hx of oc htn. IOP acceptable today on 1 class. No e/o progressive optic neuropathy. No need for further intervention. Discussed trial of xelpros but pt elects to stay with zioptan. CPM with zioptan 1gtt ou qhs. F/u in 1 year for annual exam and repeat testing. Borderline glaucoma with ocular hypertension 05/2011 Overview (05/23/2023): - per pt, intraocular pressure (IOP) in high 20 low 30s? Prior to tx - h/o normal OCT RNFL and full Alva visual field (HVF) - intraocular pressure (IOP) acceptable on 1 agent Last Assessment & Plan: Order Alva visual field (HVF) today. Discussed options. Pt will ct zioptan nightly, 3 days on, 2 days off. Resolved Problems Problem Noted Date Diagnosed Date Resolved Date Sinusitis 04/03/2014 04/10/2018 Overview (02/20/2017): Allergic sinusitis Back disorder 04/03/2014 04/10/2018 Overview (02/20/2017): BACK DISORDER NOS Immunizations Immunization Administration Dates Next Due Influenza, Split 09/21/2010 Influenza, Trivalent, IM (MDV) 09/28/2013,2008 Influenza, Unspecified 11/18/2021(Deferr ed: Patient Refused),11/18/2020(Deferred: Patient Refused),08/18/2020(Deferred: Patient Refused),08/18/2019(Deferred: Patient Refused) Tdap 09/07/2015,12/22/2010 Social History Tobacco Use Types Packs/Day Years Used Date Smoking Tobacco: Former Cigarettes Q uit: 1981 Passive Smoke Exposure: Never Smokeless Tobacco: Never Tobacco Cessation:Counseling Given: Not Answered Alcohol Use Standard Drinks/Week Comments No 0 (1 standard drink = 0.6 oz pur e alcohol) Humiliation, Afraid, Rape, and Kick questionnair e Answer Date Recorded Within the last year, have y ou been afraid of your partner or ex-partner? No 11/22/2020 Within the last year, have y ou been humiliated or emotionally abused in other ways by your partner or ex-partner? No Within the last year, have y ou been kicked, hit, slapped, or otherwise physically hurt by your partner or ex-partner? No 11/22/2020 Within the last year, have y ou been raped or forced to have any kind of sexual activity by your partner or ex-partner? No 11/22/2020 Social Connection and Isolat ion Panel [NHANES] Answer Date Recorded In a typical week, how many times do you talk on the phone with family, friends, or neighbors? More than three times a week 11/22/2020 How often do you get togethe r with friends or relatives? Once a week 11/22/2020 How often do you attend chur or synagogue services? More than 4 times per year 11/22/2020 Do you belong to any clubs o r organizations such as baptism groups, unions, fraternal or athletic groups, or school groups? No 11/22/2020 How often do you attend meet ings of the clubs or organizations you belong to? Never 11/22/2020 Are you , , di vorced, , never , or living with a partner? 11/22/2020 AUDIT-C Answer Date Recorded Q1: How often do you have a drink containing alc ohol? Monthly or less 08/02/2023 Q2: How many drinks containi ng alcohol do you have on a typical day when you are drinking? 1 or 2 08/02/2023 Q3: How often do you have si x or more drinks on one occasion? Never 08/02/2023 Overall Financial Resource Strain (CARDIA) Answe r Date Recorded How hard is it for you to pa y for the very basics like food, housing, medical care, and heating? Not hard at all 11/22/2020 PHQ-2 Answer Date Recorded PHQ-2 Total Score (If total score is 3 or more points, staff should administer the PHQ-9) 0 06/28[facility]2022 [facility] Answer Date Recorded Do you feel stress - tense, restless, nervous, or anxious, or unable to sleep at night because your mind is troubled all the time - these days? Not at all 11/22/2020 Exercise Vital Sign Answer Date Recorde d On average, how many days pe r week do you engage in moderate to strenuous exercise (like a brisk walk)? 0 days Minutes of Exercise per Session Not on file 11/22/2020 Hunger Vital Sign Answer Date Recorded Within the past 12 months, y ou worried that your food would run out before you got the money to buy more. Never true 11/22/19 21 Within the past 12 months, t he food you bought just didn't last and you didn't have money to get more. Never true 11/22/2020 PRAPARE - Transportation Answer Date Re corded In the past 12 months, has l ack of transportation kept you from medical appointments or from getting medications? No 03/2021 In the past 12 months, has l ack of transportation kept you from meetings, work, or from getting things needed for daily living? No 11/22/2020 Personal Safety Answer Date Recorded Have you ever been in or are you currently in a harmful physical or emotional relationship or is someone making you feel afraid or unsafe? Denies 08/02/2023 Education Answer Date Recorded What is the highest level of school you have completed or the highest degree you have received? High school graduate 11/22/2020 Comments No Sex and Gender Information Value Date Recorded Sex Assigned at Not on file Legal Sex Female 12:19 AM EXECUTIVE CYBER LEADER Gender Identity Not on file Sexual Orientation Not on file Last Filed Vital Signs Vital Sign Reading Time Taken Comments Blood Pressure 120/70 01/06/2025 1:17 PM EXECUTIVE CYBER LEADER Pulse 69 01/06/2025 1:17 PM EXECUTIVE CYBER LEADER Temperature 36.1 C (97 F) 08/02/2023 2:10 PM CDT Respiratory Rate 17 08/02/2023 2:10 PM CDT Oxygen Saturation 97% 01/06/2025 1:17 PM EXECUTIVE CYBER LEADER Inhaled Oxygen Concentration - - Weight 80.3 kg (177 lb) 01/06/2025 1:17 PM EXECUTIVE CYBER LEADER Height 160 cm (5' 3 ) 01/06/2025 1:17 PM EXECUTIVE CYBER LEADER Body Mass Index 31.35 01/06/2025 1:17 PM EXECUTIVE CYBER LEADER Plan of Treatment Not on file Procedures Procedure Name Priority Date/Time Associated Diagnosis Comments TRANSTHORACIC ECHO (TTE) COMPLETE W DOPPLER/CF WO CONTRAST Routine 02/11/2025 11:18 AM CDT History of mitral valve prolapse Palpitations ELECTROCARDIOGRAM REPORT Routine 025 2:23 PM EXECUTIVE CYBER LEADER Atypical chest pain Palpitations POCT LIPID PANEL Routine 01/06/2025 1:19 PM EXECUTIVE CYBER LEADER Hyperlipidemia LDL goal <100 SCREENING MAMMOGRAM BILATERAL W DAO Schedule Routine, Read Routine (OP Routine) 08/27/2023 4:30 PM CDT Screening mammogram, encounter for HEPATITIS C ANTIBODY Routine 11/23/2020 9:43 AM EXECUTIVE CYBER LEADER COLONOSCOPY Routine 05/31/2017 from Last 3 Months or Most Recently Relevant to Health Maintenance Results * TRANSTHORACIC ECHO (TTE) COMPLETE W DOPPLER/CF WO CONTRAST (02/11/2025 11:18 AM CDT) LV EF 60 % CONS SCIMAGE Anatomical Region Laterality Modality Ultrasound 02/11/2025 10:4 7 AM CDT Narrative 02/12/2025 7:[address] [facility] Cardiology [address], [address], [place] [address] P:[phone] P:[phone] Echocardiographic Report Patient Name: LACEY WATERS L : 1960 Study Date: 02/11/2025 10:47:20 AM Gender: F Tech: Location: [facility] Ref Provider: SANDIE LUCIO Height(Cm): 160 BSA: 1.89 Weight(Kg): 80.3 Heart Rate: 77 BP: 120 / 70 Quality: Good Order Provider: SANDIE LUCIO PROCEDURES: Echocardiographic Report: Transthoracic echocardiogram with complete 2D, M-Mode, and color Doppler examination. With Strain Analysis. INDICATIONS: History of Mitral Valve Prolapse and R00.2 Palpitations. MEASUREMENTS: 2D/MM Value Range Doppler Value Range EF Mod BP 65 % [ 54 - 74 ] FELISHA Vmax 2.31 cm2 [ 2.00 - 4.00 ] EF Teich MM 57 % [ 54 - 74 ] AV Mean PG 4 mmHg Estimated EF 60 % AV Peak Manas 1.41 m/s [ 1.00 - 1.70 ] LVIDd 2D 4.91 cm [ 3.80 - 5.20 ] AV Peak PG 8 mmHg LVIDd MM 5.32 cm [ 3.80 - 5.20 ] AV VTI 29.54 cm LVIDs 2D 2.74 cm [ 2.20 - 3.50 ] LVOT Diam 2.04 cm [ 1.70 - 2.10 ] LVIDs MM 3.70 cm [ 2.20 - 3.50 ] LVOT Peak Manas 0.91 m/s [ 0.70 - 1.10 ] LVPWd 2D 0.97 cm [ 0.60 - 0.90 ] LVOT VTI 22.00 cm LVPWd MM 0.92 cm [ 0.60 - 0.90 ] MV E Peak Manas 0.71 m/s [ 0.60 - 1.30 ] IVSd 2D 0.65 cm [ 0.60 - 0.90 ] MV A Peak Manas 0.95 m/s [ 1.00 - 1.20 ] IVSd MM 0.97 cm [ 0.60 - 0.90 ] MV Decel Time 229 msec [ 104 - 258 ] LA Dimension MM 3.38 cm [ 2.70 - 3.80 ] PV Peak Manas 0.98 m/s [ 0.40 - 0.80 ] AoR Diam MM 3.08 cm [ 2.70 - 3.70 ] TR Peak Manas 2.43 m/s [ 1.00 - 2.80 ] LA Volume Index 20 cc/m2 [ 16 - 34 ] TR Peak PG 24 mmHg RVSP 32.00 mmHg [ 10.00 - 36.00 ] Lateral E` 0.07 m/s [ 0.10 - 0.15 ] E/E` 10 2D/MM Value Range Doppler Value Range - FINDINGS: Interpretation Site: Exam was interpreted at [facility]. Left Ventricle: Normal left ventricular size. Normal global left ventricular systolic function. Impaired diastolic relaxation Grade I. Ejection fraction is measured at 65 %. Ejection Fraction is visually estimated to be 60 %. Global Longitudinal Strain is -21 %. Right Ventricle: Normal right ventricular size. Left Atrium: The left atrium is normal in size. Right Atrium: The right atrium is normal in size. Atrial Septum: Normal atrial septum. Mitral Valve: Mild mitral valve prolapse involving the posterior mitral valve. Mild mitral valve regurgitation. Aortic Valve: Normal appearance of the aortic valve. Tricuspid Valve: Normal appearance of the tricuspid valve. Estimated peak RVSP is 32 mmHg. Pulmonic Valve: Normal appearance of the pulmonic valve. Pericardium: Normal pericardium with no significant pericardial effusion. Aorta: Normal aortic root. IVC: Normal size and normal respiratory collapse consistent with normal right atrial pressure (<5 mmHg). Pulmonary Artery: Normal pulmonary artery size. CONCLUSIONS: Normal left ventricular size. Normal global left ventricular systolic function. Impaired diastolic relaxation Grade I. Ejection fraction is measured at 65 %. Ejection Fraction is visually estimated to be 60 %. Global Longitudinal Strain is -21 %. The left atrium is normal in size. Mild mitral valve prolapse involving the posterior mitral valve leaflet. Mild mitral valve regurgitation. Electronically Signed By: Lennox Alcala MD, [facility] 02/12/2025 7:02:49 AM CDT Procedure Note Lennox Alcala MD - 02/12/2025 [facility] Cardiology [facility] [address], [address], [place] [address] P:[phone] P:[phone] Echocardiographic Report Patient Name: LACEY WATERS L : 1960 Study Date: 02/11/2025 10:47:20 AM Gender: F Tech: Location: [facility] Ref Provider: SANDIE LUCIO Height(Cm): 160 BSA: 1.89 Weight(Kg): 80.3 Heart Rate: 77 BP: 120 / 70 Quality: Good Order Provider: SANDIE LUCIO PROCEDURES: Echocardiographic Report: Transthoracic echocardiogram with complete 2D, M-Mode, and color Dopplerexamination. With Strain Analysis. INDICATIONS: History of Mitral Valve Prolapse and R00.2 Palpitations. MEASUREMENTS: 2D/MM Value Range Doppler ValueRange EF Mod BP 65 % [ 54 - 74 ] FELISHA Vmax 2.31cm2 [ 2.00 - 4.00 ] EF Teich MM 57 % [ 54 - 74 ] AV Mean PG 4mmHg Estimated EF 60 % AV Peak Manas 1.41m/s [ 1.00 - 1.70 ] LVIDd 2D 4.91 cm [ 3.80 - 5.20 ] AV Peak PG 8mmHg LVIDd MM 5.32 cm [ 3.80 - 5.20 ] AV VTI 29.54cm LVIDs 2D 2.74 cm [ 2.20 - 3.50 ] LVOT Diam 2.04 cm[ 1.70 - 2.10 ] LVIDs MM 3.70 cm [ 2.20 - 3.50 ] LVOT Peak Manas 0.91m/s [ 0.70 - 1.10 ] LVPWd 2D 0.97 cm [ 0.60 - 0.90 ] LVOT VTI 22.00cm LVPWd MM 0.92 cm [ 0.60 - 0.90 ] MV E Peak Manas 0.71m/s [ 0.60 - 1.30 ] IVSd 2D 0.65 cm [ 0.60 - 0.90 ] MV A Peak Manas 0.95m/s [ 1.00 - 1.20 ] IVSd MM 0.97 cm [ 0.60 - 0.90 ] MV Decel Time 229msec [ 104 - 258 ] LA Dimension MM 3.38 cm [ 2.70 - 3.80 ] PV Peak Manas 0.98m/s [ 0.40 - 0.80 ] AoR Diam MM 3.08 cm [ 2.70 - 3.70 ] TR Peak Manas 2.43m/s [ 1.00 - 2.80 ] LA Volume Index 20 cc/m2 [ 16 - 34 ] TR Peak PG 24mmHg RVSP 32.00 mmHg [ 10.00 - 36.00 ] Lateral E` 0.07 m/s [ 0.10 - 0.15 ] E/E` 10 2D/MM Value Range Doppler ValueRange - FINDINGS: Interpretation Site: Exam was interpreted at [facility]. Left Ventricle: Normal left ventricular size. Normal global left ventricular systolicfunction. Impaired diastolic relaxation Grade I. Ejection fraction is measured at 65 %.Ejection Fraction is visually estimated to be 60 %. Global Longitudinal Strain is -21 %. Right Ventricle: Normal right ventricular size. Left Atrium: The left atrium is normal in size. Right Atrium: The right atrium is normal in size. Atrial Septum: Normal atrial septum. Mitral Valve: Mild mitral valve prolapse involving the posterior mitral valve. Mildmitral valve regurgitation. Aortic Valve: Normal appearance of the aortic valve. Tricuspid Valve: Normal appearance of the tricuspid valve. Estimated peak RVSP is 32mmHg. Pulmonic Valve: Normal appearance of the pulmonic valve. Pericardium: Normal pericardium with no significant pericardial effusion. Aorta: Normal aortic root. IVC: Normal size and normal respiratory collapse consistent with normal rightatrial pressure (<5 mmHg). Pulmonary Artery: Normal pulmonary artery size. CONCLUSIONS: Normal left ventricular size. Normal global left ventricular systolicfunction. Impaired diastolic relaxation Grade I. Ejection fraction is measured at 65 %.Ejection Fraction is visually estimated to be 60 %. Global Longitudinal Strain is -21 %. The left atrium is normal in size. Mild mitral valve prolapse involving the posterior mitral valve leaflet.Mild mitral valve regurgitation. Electronically Signed By: Lennox Alcala MD, [facility] 02/12/2025 7:02:49 AM CDT Sandie Lucio MD CV ECHO PROCEDURES Final Result * Electrocardiogram Report (01/06/2025 2:23 PM EXECUTIVE CYBER LEADER) Sandie Lucio MD ECG ORDERABLES Final Res ult * POCT lipid panel (01/06/2025 1:19 PM EXECUTIVE CYBER LEADER) Cholesterol, POC 243 mg/dL HDL, POC 57 mg/dL Triglycerides, POC 169 mg/dL LDL Cholesterol POC 152 mg/dL Chol/HDL Ratio, POC 2.7 Non-HDL Cholesterol, POC 186 mg/dL Cholesterol Total, POC 243 mg/dL Capillary blood 01/06/2025 1 :19 PM EXECUTIVE CYBER LEADER Sandie Lucio MD POINT OF CARE TEST ORDERA BLES Final Result * Screening Mammogram Bilateral W Dao (08/27/2023 4:30 PM CDT) Anatomical Region Laterality Modality Breast Bilateral Mammography 08/28/2023 8:19 AM CDT Impressions 08/28/2023 8:19 AM CDT There is no mammographic evidence of malignancy. A 1 year screening mammogram is recommended. BI-RADS: 2 - Benign. The patient has been or will be contacted. The patient will be entered into a reminder system with a target due date of 1 year for her next mammogram. Electronically signed by: Sandie Rivera M.D. Narrative 08/28/2023 8:19 AM CDT EXAMINATION: SCREENING MAMMOGRAM BILATERAL W DAO ORDERING HEALTHCARE PROVIDER: SELF SCREENING MAMMOGRAM HISTORY: Routine screening mammography. COMPARISON: 07/27/2022, 05/02/2021, 04/24/2018 TECHNIQUE: CC and MLO views of the bilateral breasts were obtained with digital technique using breast tomosynthesis with C view. Computer aided detection was utilized. FINDINGS: DENSITY: There are scattered fibroglandular elements in the bilateral breasts. BREASTS: There are benign-appearing scattered calcifications in both breasts. There is no new suspicious finding in either breast on mammogram. Self Screening Mammogram IMG MAMMO PROCEDURES Fi nal Result * Hepatitis C antibody (11/23/2020 9:43 AM EXECUTIVE CYBER LEADER) Hep C Ab NON-REACTI VE NON-REACT HELGA [facility] SIGNAL TO CUT-OFF 0.01 <1.00 [facility] Comment: HCV antibody was non-reactive. There is no laboratory evidence of HCV infection. In most cases, no further action is required. However, if recent HCV exposure is suspected, a test for HCV RNA (test code 70461) is suggested. For additional information please refer to http://education.[employer]/faq/VMO72u1 (This link is being provided for informational/ educational purposes only.) 11/23/2020 9:43 AM EXECUTIVE CYBER LEADER 11/23/2020 9:44 AM EXECUTIVE CYBER LEADER Narrative [facility] - 11/24/2020 10:20 AM EXECUTIVE CYBER LEADER FASTING:YES FASTING: YES Dusty Rose MD LAB MICROBIOLOGY - GENERAL ORDERABLES Final Result Performing Organization Address City/State/[facility] Co ma Phone Number JULIO CESAR [facility] [address] [place] [address] * Colonoscopy (05/31/2017) Anatomical Region Laterality Modality Other Narrative 05/31/[address] Franki Thapa M.D. Historical Provider ENDOSCOPY PROCEDURES Madhuri l Result from Last 3 Months or Most Recently Relevant to Health Maintenance Insurance [facility] HMO [facility] MEDICARE [facility] MEDICARE Care Teams Yarn Mercerizer Operator Relationship Specialty Start Date End Date Jalen Gastelum MD [address] [address] PCP - General Family Practice 03/05/23 Jordan Thapa MD [address] [address] Consulting Physician Gastroenterology 04/10/18 Danielle Talbot OD [address] [address] Optometry 11/28/21 Lennox Alcala MD [address] [phone] Consulting Physician Cardiology 11/28/21 Alexys Barr DC [address] [place] [address] Consulting Physician Chiropractic Medicine 11/28/21 Karla Alva MD [address] [address] Surgeon Glaucoma Ophthalmology 06/28/22
--- OUTSIDE RECORDS SUMMARY | 2025-03-05 10:29 | XMS_ITS | Encounter Summary ---
Author Organization [facility] Address [address] [facility] [address] [place] [address] Care Team Providers Care Certified Control Systems Technician Name Role Phone Dusty Rose MD Primary Care Provider [phone] Dusty Rose MD Primary Care Provider Jordan Thapa MD Unavailable [phone] Danielle Talbot OD Unavailable [phone] Lennox Alcala MD Unavailable [phone] Alexys Barr DC Unavailable [phone] Karla Alva MD Unavailable [phone] Jalen Gastelum MD Primary Care Provider [phone] Encounter Details Date Type Department Care Team (Late st Contact Info) Description 05/16/2007 Orders Only [facility] Provider, MD Rosie [address] [place] [address] Social History Tobacco Use Types Packs/Day Years Used Date Smoking Tobacco: Never Assessed Comments Unknown Sex and Gender Information Value Date Recorded Sex Assigned at Not on file Legal Sex Female 12:19 AM STAFF ENGINEER Gender Identity Not on file Sexual Orientation Not on file documented as of this encounter Plan of Treatment Not on file documented as of this encounter Procedures Procedure Name Priority Date/Time Associated Diagnosis Comments CARDIOLOGY REPORT 05/16/2007 documented in this encounter Results * CARDIOLOGY REPORT (05/16/2007) Anatomical Region Laterality Modality Other Narrative 05/16/2007 Ordered by an unspecified provider. us Historical Provider CV CARDIAC SERVICES ALIE MCKEON Final Result documented in this encounter Visit Diagnoses Not on filedocumented in this encounter Care Teams Certified Control Systems Technician Relationship Specialty Start Date End Date Dusty Rose MD PCP - General 04/21/08 03/04/23 Dusty Rose MD PCP - General 02/12/07 04/20/08 [place] [address] [place] [id number] PCP - General Family Practice 03/05/23 Jordan Thapa MD [address] [address] Consulting Physician Gastroenterology 04/10/18 Danielle Talbot OD [address] [address] Optometry 11/28/21 Lennox Alcala MD [address] [address] Consulting Physician Cardiology 11/28/21 Alexys Barr DC [address] [place] [id number] Consulting Physician Chiropractic Medicine 11/28/21 Karla Alva MD [address] [place] [id number] Surgeon Glaucoma Ophthalmology 06/28/22 documented as of this encounter
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
--- OUTSIDE RECORDS SUMMARY | 2025-03-05 10:29 | XMS_ITS | Encounter Summary ---
Author Organization [facility] Address [address] [facility] [address] [place] [address] Care Team Providers Care Bight Maker Name Role Phone Dusty Rose MD Primary Care Provider [phone] Jordan Thapa MD Unavailable [phone] Danielle Talbot OD Unavailable [phone] Lennox Alcala MD Unavailable [phone] Alexys Barr DC Unavailable Karla Alva MD Unavailable [phone] Jalen Gastelum MD Primary Care Provider [phone] Encounter Details Date Type Department Care Team (Late st Contact Info) Description 09/11/2011 Orders Only [facility] ProviderRosie MD [address] [place] [address] Social History Tobacco Use Types Packs/Day Years Used Date Smoking Tobacco: Never Assessed Comments Unknown Sex and Gender Information Value Date Recorded Sex Assigned at Not on file Legal Sex Female 12:19 AM MATHEMATICAL ENGINEER Gender Identity Not on file Sexual Orientation Not on file documented as of this encounter Plan of Treatment Not on file documented as of this encounter Procedures Procedure Name Priority Date/Time Associated Diagnosis Comments CARDIOLOGY REPORT 09/11/2011 documented in this encounter Results * CARDIOLOGY REPORT (09/11/2011) Anatomical Region Laterality Modality Other Narrative 09/11/2011 Ordered by an unspecified provider. Historical Provider [facility] C[facility]AC [facility] PROCE MIKE Final Result documented in this encounter Visit Diagnoses Not on filedocumented in this encounter Care Teams Bight Maker Relationship Specialty Start Date End Date Dusty Rose MD PCP - General 04/21/08 03/04/23 Jalen Gastelum MD [address] [phone] PCP - General Family Practice 03/05/23 Jordan Thapa MD [address] [address] Consulting Physician Gastroenterology 04/10/18 Danielle Talbot, ROSY [address] [address] Optometry 11/28/21 Lennox Alcala MD [address] [phone] Consulting Physician Cardiology 11/28/21 Alexys Barr DC [address] [place], [place] [phone] Consulting Physician Chiropractic Medicine 11/28/21 Karla Alva MD [address] [address] Surgeon Glaucoma Ophthalmology 06/28/22 documented as of this encounter
--- OUTSIDE RECORDS SUMMARY | 2025-03-05 10:29 | XMS_ITS | Encounter Summary ---
Author Organization [facility] Address [address] [facility] [address] [place] [address] Care Team Providers Care Board Finisher Name Role Phone Dusty Rose MD Primary Care Provider [phone] Jordan Thapa MD Unavailable [phone] Danielle Talbot OD Unavailable [phone] Lennox Alcala MD Unavailable [phone] Alexys Barr DC Unavailable [phone] Karla Alva MD Unavailable [phone] Jalen Gastelum MD Primary Care Provider [phone] Encounter Details Date Type Department Care Team (Late st Contact Info) Description 02/17/2013 Orders Only [facility] ProviderRosie MD [address] [place] [address] Social History Tobacco Use Types Packs/Day Years Used Date Smoking Tobacco: Never Assessed Comments Unknown Sex and Gender Information Value Date Recorded Sex Assigned at Not on file Legal Sex Female 12:19 AM GRIDDLE ATTENDANT Gender Identity Not on file Sexual Orientation Not on file documented as of this encounter Plan of Treatment Not on file documented as of this encounter Procedures Procedure Name Priority Date/Time Associated Diagnosis Comments CARDIOLOGY REPORT 02/17/2013 documented in this encounter Results * CARDIOLOGY REPORT (02/17/2013) Anatomical Region Laterality Modality Other Narrative 02/17/2013 Ordered by an unspecified provider. Historical Provider CV CARDIAC SERVICES PROCE MIKE Final Result documented in this encounter Visit Diagnoses Not on filedocumented in this encounter Care Teams Board Finisher Relationship Specialty Start Date End Date Dusty Rose MD PCP - General 04/21/08 03/04/23 Jalen Gastelum MD [address] [id number] PCP - General Family Practice 03/05/23 Jordan Thapa MD [address] [address] Consulting Physician Gastroenterology 04/10/18 Danielle Talbot, ROSY [address] [address] Optometry 11/28/21 Lennox Alcala MD [address] [phone] Consulting Physician Cardiology 11/28/21 Alexys Barr DC [address] [place], [place] [phone] Consulting Physician Chiropractic Medicine 11/28/21 Karla Alva MD [address] [address] Surgeon Glaucoma Ophthalmology 06/28/22 documented as of this encounter
--- OUTSIDE RECORDS SUMMARY | 2025-03-05 10:30 | XMS_ITS | Encounter Summary ---
Author Organization [facility] Address [address] [facility] [address] [place] [address] Care Team Providers Care Parts Clerk Name Role Phone Dusty Rose MD Primary Care Provider [phone] Jordan Thapa MD Unavailable [phone] Danielle Talbot OD Unavailable [phone] Lennox Alcala MD Unavailable [phone] Alexys Barr DC Unavailable [phone] Karla Alva MD Unavailable [phone] Jalen Gastelum MD Primary Care Provider [phone] Encounter Details Date Type Department Care Team (Late st Contact Info) Description 02/04/2015 Orders Only [facility] Provider, MD Rosie [address] [place] [address] Social History Tobacco Use Types Packs/Day Years Used Date Smoking Tobacco: Former Alcohol Use Standard Drinks/Week Comments No 0 (1 standard drink = 0.6 oz pur e alcohol) Comments Unknown Sex and Gender Information Value Date Recorded Sex Assigned at Not on file Legal Sex Female 12:19 AM COMMUNITY SERVICE AIDE Gender Identity Not on file Sexual Orientation Not on file documented as of this encounter Plan of Treatment Not on file documented as of this encounter Procedures Procedure Name Priority Date/Time Associated Diagnosis Comments CARDIOLOGY REPORT 02/04/2015 documented in this encounter Results * CARDIOLOGY REPORT (02/04/2015) Anatomical Region Laterality Modality Other Narrative 02/04/2015 Ordered by an unspecified provider. us Historical Provider [facility] CARDIAC SERVICES ALIE MCKEON Final Result documented in this encounter Visit Diagnoses Not on filedocumented in this encounter Care Teams Parts Clerk Relationship Specialty Start Date End Date Dusty Rose MD PCP - General 04/21/08 03/04/23 Jalen Gastelum MD [address] [phone] PCP - General Family Practice 03/05/23 Jordan Thapa MD [address] [facility] [address] [place] [address] Consulting Physician Gastroenterology 04/10/18 Danielle Talbot, ROSY [address] [facility] [address] [place] [address] Optometry 11/28/21 Lennox Alcala MD [address] [place] [address] Consulting Physician Cardiology 11/28/21 Alexys Barr DC 4225 [place] [address] Consulting Physician Chiropractic Medicine 11/28/21 Karla Alva MD [address] [address] Surgeon Glaucoma Ophthalmology 06/28/22 documented as of this encounter
--- OUTSIDE RECORDS SUMMARY | 2025-03-05 10:30 | XMS_ITS | Clinical Summary ---
Author Organization [facility] Address [address] [place] [address] Care Team Providers Care Hay Stacker Name Role Phone Dusty Rose MD Primary Care Provider Allergies Active Allergy Reactions Criticality Noted Date Comments Aller-Chlor Decongestant Other (See Comments) 1 Anesthetics - Amide Type - Select Amino Amides Other (See Comments) 09/04/2022 Codeine Other (See Comments) 09/04/2022 Decongest Palpitations Low 11/14/2015 Excedrin Ib Palpitations Low 11/14/2015 Medications tafluprost (ZIOPTAN) 0.0015 % Dropperette solution by Ophthalmic route. Active lidocaine 1 % (XYLOCAINE) Solution lidocaine (PF) 10 mg/mL (1 %) injection solution In office injection administered by the provider Active triamcinolone acetonide (KENALOG-10) 10 mg/mL Suspension Kenalog 10 mg/mL suspension for injection In office injection administered by the provider Active traMADoL (ULTRAM) 50 mg tabletIndicatio ns:Arthritis of right knee Take 1 Tablet (50 mg) by mouth every 6 hours as needed for Pain, Severe. 15 Tablet 3 Active Active Problems Problem Noted Date Diagnosed Date Lesion of left lower eyelid 05/22/2023 Overview (06/25/2023): Last Assessment & Plan: Awaiting path report. Follow as scheduled with Dr. Darden Lesion of nose 03/05/2023 Overview (06/25/2023): Last Assessment & Plan: Some features concerning for basal cell carcinoma (BCC) on the left lateral aspect of her nose/LLL (where glasses nosepads rest) She has a smaller non pigmented lesion along the left nasolabial fold, recommend evaluation with Dr. Darden Dry eye syndrome of both eyes 07/02/2022 Overview (09/04/2022): Last Assessment & Plan: Try oil based pres-free artif tear. Use as often as needed. Subjective visual disturbance of right eye 07/02 Overview (09/04/2022): Last Assessment & Plan: Likely refractive vs early cataract/ mild epiretinal membrane (ERM) right eye (OD). PH did improve visual acuity (VA), so rec new refraction/ glasses. If no improvement (NI), consider retinal consult. Diverticulitis 03/29/2022 Overview (09/04/2022): Last Assessment & Plan: Liquid diet x 3 days; broth at the most. zofran PRN for nausea Stay hydrated CT ordered, as soon as we can get. Cipro and Flagyl course sent; if not tolerated, we can switch to Augmentin Epiretinal membrane (ERM) of right eye Overview (09/04/2022): Last Assessment & Plan: Order OCT today. Minimal. Monitor. If refraction does not improve subjective visual acuity (VA), consider retinal consult. Other chest pain 03/30/2021 Acquired trigger finger 11/22/2020 Brachial neuritis 11/22/2020 Disorder of bursae of shoulder region 11/22/2020 Full thickness rotator cuff tear 11/22/2020 Shoulder joint pain 11/22/2020 Refraction disorder 07/31/2020 Overview (09/04/2022): Last Assessment & Plan: Release updated glasses Rx, minimal change from hab, pt ed. Impaired glucose tolerance 04/10/2018 Overview (09/04/2022): Prediabetes; Comments: OAC 01/28/2016 - Last Assessment & Plan: Awaiting hemoglobin A1c Combined forms of age-related cataract of both e yes 07/17/2016 Overview (09/04/2022): Last Assessment & Plan: No indication for surgery at this time. Pt to see outside provider for updated SRx. Age-related macular degeneration 04/03/2014 Overview (09/04/2022): MACULAR DEGENERATION NOS Pure hypercholesterolemia 04/03/2014 Overview (09/04/2022): PURE HYPERCHOLESTEROLEM Last Assessment & Plan: BP borderline Cholesterol has increased mildly. Reticence to take rx noted. Will look into berberine supplement. Recommend also a bit more effort on lowering simple carbohydrates and fats in diet Borderline glaucoma with ocular hypertension 05/2011 Overview (09/04/2022): - per pt, intraocular pressure (IOP) in high 20 low 30s? Prior to tx - h/o normal OCT RNFL and full Alva visual field (HVF) - intraocular pressure (IOP) acceptable on 1 agent Last Assessment & Plan: Order Alva visual field (HVF) today. Discussed options. Pt will ct zioptan nightly, 3 days on, 2 days off. Family History Medical History Relation Name Comments Arthritis-osteo Father Hypertension Father Arthritis-osteo Maternal Aunt Heart Disease Maternal Aunt Hypertension Maternal Aunt Stroke Maternal Aunt Arthritis-osteo Maternal Grandfather Heart Disease Maternal Grandfather Arthritis-osteo Maternal Grandmother Heart Disease Maternal Grandmother Arthritis-osteo Mother Arthritis-osteo Paternal Grandfather Arthritis-osteo Paternal Grandmother Relation Name Status Comments Father Maternal Aunt Maternal Grandfather Maternal Grandmother Mother Paternal Grandfather Paternal Grandmother Social History Tobacco Use Types Packs/Day Years Used Date Smoking Tobacco: Never Smokeless Tobacco: Never Tobacco Cessation:Counseling Given: Not Answered Alcohol Use Standard Drinks/Week Comments No 0 (1 standard drink = 0.6 oz pur e alcohol) Comments No Sex and Gender Information Value Date Recorded Sex Assigned at Not on file 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 Gender Identity Not on file Sexual Orientation Not on file Last Filed Vital Signs Vital Sign Reading Time Taken Comments Blood Pressure 110/60 06/25/2023 9:50 AM CDT Pulse 78 07/26/2016 2:17 PM CDT Temperature - - Respiratory Rate 98 07/26/2016 2:17 PM CDT Oxygen Saturation - - Inhaled Oxygen Concentration - - Weight 80.7 kg (178 lb) 06/25/2023 9:50 AM CDT Height 160 cm (5' 3 ) 06/25/2023 9:50 AM CDT Body Mass Index 31.53 06/25/2023 9:50 AM CDT Plan of Treatment Health Maintenance Due Date Last Done Comments COLORECTAL SCREENING 2003 Colorectal Cancer Screening 2003 FIT-DNA Q 3 years 2003 FIT/FOBT Q 1 year 2003 Flex Sig/CT Colonography Q 5 years 2003 PNEUMOCOCCAL VACCINE 50+ YEA RS (1 of 1 - PCV) 2008 ZOSTER VACCINE (1 of 2) 2008 OSTEOPOROSIS SCREENING 2023 BREAST CANCER SCREENING 07/27/2023 07/27/20 22, 07/27/2022, 05/02/2021, Additional history exists INFLUENZA VACCINE (#1) 2024 09/28/2013, 2008 DTAP/TDAP/TD VACCINES (3 - T d or Tdap) 09/07/2025 09/07/2015, 12/22/2010 RSV VACCINE (60+ or ) (1 - 1-dose 75+ series) 2033 Insurance [employer] PPO MCR Care Teams Hay Stacker Relationship Specialty Start Date End Date Dusty Rose MD PCP - General Family Practice 11/14/15
--- OUTSIDE RECORDS SUMMARY | 2025-03-05 10:30 | XMS_ITS | Encounter Summary ---
Author Organization [facility] Healthcare Address [address] [place] [address] Care Team Providers Care Shift Lab Technician Name Role Phone Jordan Thapa MD Unavailable [phone] Danielle Talbot OD Unavailable [phone] Lennox Alcala MD Unavailable [phone] Alexys Barr DC Unavailable [phone] Karla Alva MD Unavailable [phone] Jalen Gastelum MD Primary Care Provider [phone] Encounter Details Date Type Department Care Team (Late st Contact Info) Description 02/15/2025 Results Follow-Up [facility] Cardiology [address] [place] [address] Tomer Lucio MD [address] [place] [id number] Social History Tobacco Use Types Packs/Day Years Used Date Smoking Tobacco: Former Cigarettes Q uit: 1980 Passive Smoke Exposure: Never Smokeless Tobacco: Never Alcohol Use Standard Drinks/Week Comments No 0 [...] How often do you attend chur or confucianism services? More than 4 times per year 11/22/2020 Do you belong to any clubs o r organizations such as temple groups, unions, fraternal or athletic groups, or [...] staff should administer the PHQ-9) 0 06/28/2022 [facility] - Occupational Stress [...] on file Legal Sex Female 12:19 AM MEDICAL RECORDS SECRETARY Gender Identity Not on file Sexual Orientation Not on file documented as of this encounter Plan of Treatment Not on file documented as of this encounter Visit Diagnoses Not on filedocumented in this encounter Care Teams Shift Lab Technician Relationship Specialty Start Date End Date Jalen Gastelum MD [address] [facility] [address] [place] [address] PCP - General Family Practice 03/05/23 Jordan Thapa MD [address] [address] Consulting Physician Gastroenterology 04/10/18 Danielle Talbot OD [address] [address] Optometry 11/28/21 Lennox Alcala MD [address] [place] [address] [address] [place] [address] Consulting Physician Cardiology 11/28/21 Aleyxs Barr DC [address] [place] [address] Consulting Physician Chiropractic Medicine 11/28/21 Karla Alva MD [address] [facility] [address] [place] [address] Surgeon Glaucoma Ophthalmology 06/28/22 documented as of this encounter
--- OUTSIDE RECORDS SUMMARY | 2025-03-05 10:32 | XMS_ITS | Encounter Summary ---
Author Organization [facility] Healthcare Address [address] [place] [address] Care Team Providers Care Etcher Photoengraving Name Role Phone Jordan Thapa MD Unavailable [phone] Danielle Talbot OD Unavailable [phone] Lennox Alcala MD Unavailable [phone] Alexys Barr DC Unavailable [phone] Karla Alva MD Unavailable [phone] Jalen Gastelum MD Primary Care Provider [phone] Encounter Details Date Type Department Care Team (Late st Contact Info) Description 03/05/2025 Telephone [facility] Imaging [address] [place] [address] Avis Montgomery RN Social History Tobacco Use Types Packs/Day Years [...] How often do you attend chur or faith services? 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 Gender Identity Not on file Sexual Orientation Not on file documented as of this encounter Plan of Treatment Not on file documented as of this encounter Visit Diagnoses Not on filedocumented in this encounter Care Teams Etcher Photoengraving Relationship Specialty Start Date End Date Jalen Gastelum MD [address] [address] PCP - General Family Practice 03/05/23 Jordan Thapa MD [address] [address] Consulting Physician Gastroenterology 04/10/18 Danielle Talbot OD [address] [address] Optometry 11/28/21 Lennox Alcala MD [address] [place] [address] Consulting Physician Cardiology 11/28/21 Alexys Barr DC [address] [place] [address] Consulting Physician Chiropractic Medicine 11/28/21 Karla Alva MD [address] [facility] [address] [place] [address] Surgeon Glaucoma Ophthalmology 06/28/22 documented as of this encounter
[2025-03-05 10:34] VITALS: BP 146/84; PULSE 70; RESP 16; TEMP 36.6; O2SAT 100
--- NOTE | 2025-03-05 10:39 | ED_ITS ---
HPI - Skin/Abscess/Foreign Bdy General Chief complaint: Skin/Abscess/Foreign Body Stated complaint: Skin Problem Source: patient, RN notes reviewed and old records reviewed Mode of arrival: ambulatory Limitations: no limitations History of Present Illness HPI narrative: 64 year old female who presents to [facility] care with complaints of having red pustule type of lesions to the area in from of her right ear since Saturday which are itchy and also have some discomfort to area. Patient has some small red dots on area of right neck with no pustules noted. Patient reports that she has itching to her breast and to scapular region with no rash or lesions noted. complaint: rash Onset (ago): day(s) (has been within past 72 hours) Location: face (in front of right ear) and neck (right) Severity: mild Quality: aching and pruritic Pain Consistency: colicky Treatments prior to arrival: none Related Data Home Medications ?Medication ?Instructions ?Recorded ?Confirmed ?Last Taken ?Type tafluprost (PF) 0.0015 % eye drops 1 drp EACH EYE DAILY 06/05/23 07/02/24 Unknown History in a dropperette (Zioptan (PF)) Allergies Allergy/AdvReac Type Severity Reaction Status Date / Time codeine Allergy Intermediate FAINTING Verified 03/05/25 10:39 hydrocodone Allergy Intermediate heart Verified 03/05/25 10:39 racing procaine Allergy Intermediate Jittery Verified 03/05/25 10:39 pseudoephedrine Allergy Unknown DECONGESTANTS Verified 03/05/25 10:39 CAUSE RAPID HEART RATE lidocaine Allergy Jittery Verified 03/05/25 10:39 meperidine AdvReac Intermediate NAUSEA/VOMI Verified 03/05/25 10:39 TING all decongestatnts AdvReac Intermediate Chest Pain Uncoded 03/05/25 10:39 Review of Systems Review of Systems: CONSTITUTIONAL: Denies fever, chills, or sweats. CARDIOVASCULAR: Denies chest pain, palpitations, or edema. RESPIRATORY: Denies cough or dyspnea. SKIN: Reports red pustule rash to area of nieto in front of right ear that are linear with itching and with mild discomfort reports itching to right neck right scapula area and right breast with no lesions noted MUSCULOSKELETAL: Denies joint pain or myalgia. NEUROLOGIC: Denies headache, numbness, or weakness. All systems reviewed & are unremarkable except as noted in HPI and below PMFSH Past Medical History Medical History History of vaginal delivery Seasonal allergies Primary open angle glaucoma Surgical History Surgical History History of dilation and curettage History of ankle surgery [place] teeth removed Hx of knee surgery Family History Family History Father Diabetes mellitus Grandparent Asthma Hypertension Heart disease Grandparent Depression Social History Social History Smoking packs per day: 1 Smoking cigarettes per day: 20.0 Years smoked: 2 Smoking pack-years: 2.00 Smoking status: Former smoker Alcohol intake: current Alcohol use details: 1 per month Substance use: never Substance use type: does not use Lack of Transportation: No Lack of Food: Never True Current Housing: I Have Housing Concerned About Future Housing: No Difficulty Paying Gas/Electric Bills: No Difficulty Paying for Meds: No Currently Unemployed: No Education: Decline to Answer Difficulty w/ Childcare or Family Care: No Living arrangements: with family Occupation/Education: retired Gender identity (if verbalized by the patient): Female Sexual Orientation (if Verbalized by the Patient): Straight or Heterosexual Spiritual care concerns: No Comments At time of signature, agree with nursing past medical, surgical, social and family history. There is no relevant family history pertinent to the presenting complaint Exam Narrative: GENERAL: Well-appearing, well-nourished, and in no acute distress. HEAD: Normocephalic, atraumatic. EYES: PERRLA, conjunctivae clear, and EOMI. ENT: Mucous membranes moist. Oropharynx without edema, erythema or lesions. NECK: Supple. No lymphadenopathy CHEST: Clear to auscultation. No respiratory distress.SAO2 100% on room air HEART: Regular rate and rhythm. SKIN: Warm, dry.? Linear pustules to area in front of right ear with number increasing with pain and itching to area three small red spots also on neck. Patient reports itching to right breast with no lesions and itching to back scapula area with no lesions noted. NEURO:? Alert and oriented x3. PSYCH: Normal mood and affect Course Course Emergency Course: Patient is aware of diagnosis, understands and agrees to treatment plan.? Anticipatory guidance given.? Patient agrees to follow-up as directed and is aware of reasons to seek care at the emergency department. Portions of this record may have been created with voice recognition software Level of Care: Express Care Visit Vital Signs Vital signs: Vital Signs Temperature 36.6 C 03/05/25 10:34 Pulse Rate 70 03/05/25 10:34 Respiratory Rate 16 03/05/25 10:34 Blood Pressure 146/84 H 03/05/25 10:34 Pulse Oximetry 100 03/05/25 10:34 Oxygen Delivery Room Air 03/05/25 10:34 Temperature 36.6 C 03/05/25 10:34 Pulse Rate 70 03/05/25 10:34 Respiratory Rate 16 03/05/25 10:34 Blood Pressure 146/84 H 03/05/25 10:34 Pulse Oximetry 100 03/05/25 10:34 Oxygen Delivery Room Air 03/05/25 10:34 Reviewed MDM - Skin/Abscess/Foreign Bdy MDM Narrative Medical decision making narrative: Does not appear at this time to be erythema multiforme, bullous, SJS, TEN; no evidence at this time to suggest RMSF, endocarditis or Lyme disease; patient looks well, nontoxic and is tolerating oral intake; no neurologic signs or symptoms; no headache, photophobia or neck pain; afebrile; appropriate for initial outpatient treatment; discussed the importance of follow-up, patient agrees; question, viral exanthema, contact dermatitis, allergic dermatitis, eczema, urticaria, [ xx ]. No soft palate or uvula edema, no tongue, lip edema or other mucosal involvement, no respiratory compromise, no stridor, no wheezing, no wheezing, no history of syncope, no hypotension, no nausea, vomiting, or diarrhea.? Instructed patient to go to nearest ER immediately for any worsening symptoms including but not limited to: fever, spreading rash, pain, sore throat, headache, dizziness, chest pain, trouble breathing, or any symptoms concerning to the patient. Differential Diagnosis Differential diagnosis: Likely urticaria, herpes zoster, cellulitis, contact dermatitis and other (shingle rash) Medical Records Attestation: I reviewed the patient's medical records. Critical Care Time Critical Care Time Critical Care Time: No Discharge Plan Discharge Clinical Impression: Shingles rash Qualifiers: Herpes zoster complications: without complications Qualified Code(s): B02.9 - Zoster without complications Patient Disposition: Home Condition: Stable Instructions: Antibiotic Form, Shingles (ED) Additional Instructions: Apply lidocaine ointment to rash in front of right ear up to 4 times daily watch for any increasing infection--redness, swelling, drainage Tylenol Ibuprofen or Naproxen for pain follow up with PCP in 7-10 days for a wound check recheck if develop fever, chills, increasing symptom Go to the ER if your symptoms become worse of if ANY new symptoms develop Valtrex antiviral dosing as ordered If your symptoms persist, change or worsen significantly before you can contact your personal physician then please, without delay, go to the emergency department for further evaluation. Follow-up with PCP in 7-10 days or sooner if needed Follow up with PCP soon in regards to your blood pressure which is elevated above threshold for referral. Blood pressure above 120/80 may indicate pre-hypertension. Patient Language: Finnish Prescriptions: New valacyclovir 1 gram tablet 1,000 mg PO Q8H Qty: 21 0RF No Action tafluprost (PF) [Zioptan (PF)] 0.0015 % dropperette 1 drp EACH EYE DAILY Rx Instructions: administer at bedtime Follow-up/Referrals: Jalen Gastelum MD [Primary Care Provider] - Time of Disposition: 10:51 Quality [place] Coma Scale Eyes: Open Verbal: Oriented and Alert Motor: Follows Commands [place] Coma Total Score: 15
== END 2025-03-05 10:58 | disposition home or self-care (01) ==
PROVIDERS: Emergency Provider Registered Nurse; PCP Family Medicine
DX: B02.9 Zoster without complications (principal); Z87.891 Personal history of nicotine dependence
CPT/HCPCS: 99213; G0463

== ENCOUNTER 2025-04-05 11:33 | Outpatient (CLI) | payer MEDICARE, SELFPAY ==
--- OUTSIDE RECORDS SUMMARY | 2025-04-05 12:06 | XMS_ITS | Encounter Summary ---
Author Organization [facility] Address [address] [place] [address] Care Team Providers Care Senior Net Software Engineer Name Role Phone Dusty Rose MD Primary Care Provider Jordan Thapa MD Unavailable [phone] Danielle Talbot OD Unavailable [phone] Lennox Alcala MD Unavailable [phone] Alexys Barr DC Unavailable [phone] Karla Alva MD Unavailable [phone] Jalen Gastelum MD Primary Care Provider [phone] Encounter Details Date Type Department Care Team (Late st Contact Info) Description 09/11/2011 Orders Only [facility] Provider, MD Rosie [address] [place] [id number] Social History Tobacco Use Types Packs/Day Years Used Date Smoking Tobacco: Never Assessed Comments Unknown Sex and Gender Information Value Date Recorded Sex Assigned at Not on file 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 Gender Identity Not on file Sexual Orientation Not on file documented as of this encounter Plan of Treatment Upcoming Encounters Date Type Department Care Team (Late st Contact Info) Description 04/07/2025 12:20 PM CDT Hospital Encounter [facility] Imaging [address] [address] [place] [address] documented as of this encounter Procedures Procedure Name Priority Date/Time Associated Diagnosis Comments CARDIOLOGY REPORT 09/11/2011 documented in this encounter Results * CARDIOLOGY REPORT (09/11/2011) Anatomical Region Laterality Modality Other Narrative 09/11/2011 Ordered by an unspecified provider. us Historical Provider [facility] MCKEON Final Result documented in this encounter Visit Diagnoses Not on filedocumented in this encounter Care Teams Senior Net Software Engineer Relationship Specialty Start Date End Date Dusty Rose MD PCP - General 04/21/08 03/04/23 Jalen Gastelum MD [address] [id number] PCP - General Family Practice 03/05/23 Jordan Thapa MD [address] [address] Consulting Physician Gastroenterology 04/10/18 Danielle Talbot OD [address] [address] Optometry 11/28/21 Lennox Alcala MD [address] [address] Consulting Physician Cardiology 11/28/21 Alexys Barr DC [address] [place] [address] Consulting Physician Chiropractic Medicine 11/28/21 Karla Alva MD [address] [address] Surgeon Glaucoma Ophthalmology 8/11/22 documented as of this encounter
--- OUTSIDE RECORDS SUMMARY | 2025-04-05 12:06 | XMS_ITS | Encounter Summary ---
Author Organization [facility] Address [address] [place] [address] Care Team Providers Care Antenna Engineer Name Role Phone Dusty Rose MD Primary Care Provider Jordan Thapa MD Unavailable [phone] Danielle Talbot OD Unavailable [phone] Lennox Alcala MD Unavailable [phone] Alexys Barr DC Unavailable [phone] Karla Alva MD Unavailable [phone] Jalen Gastelum MD Primary Care Provider [phone] Encounter Details Date Type Department Care Team (Late st Contact Info) Description 02/04/2015 Orders Only [facility] ProviderRosie MD [address] [place] [id number] Social History Tobacco Use Types Packs/Day Years Used Date Smoking Tobacco: Former Alcohol Use Standard Drinks/Week Comments No 0 (1 standard drink = 0.6 oz pur e alcohol) Comments Unknown Sex and Gender Information Value Date Recorded Sex Assigned at Not on file Legal Sex Female 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 Gender Identity Not on file Sexual Orientation Not on file documented as of this encounter Plan of Treatment Upcoming Encounters Date Type Department Care Team (Late st Contact Info) Description 04/07/2025 12:20 PM CDT Hospital Encounter [facility] Imaging [address] [place] [address] documented as of this encounter Procedures Procedure Name Priority Date/Time Associated Diagnosis Comments CARDIOLOGY REPORT 02/04/2015 documented in this encounter Results * CARDIOLOGY REPORT (02/04/2015) Anatomical Region Laterality Modality Other Narrative 02/04/2015 Ordered by an unspecified provider. us Historical Provider [facility] MCKEON Final Result documented in this encounter Visit Diagnoses Not on filedocumented in this encounter Care Teams Antenna Engineer Relationship Specialty Start Date End Date Dusty Rose MD PCP - General 04/21/08 03/04/23 Jalen Gastelum MD [address] [id number] PCP - General Family Practice 03/05/23 Jordan Thapa MD [address] [address] Consulting Physician Gastroenterology 04/10/18 Danielle Talbot OD [address] [address] Optometry 11/28/21 Lennox Alcala MD [address] [address] Consulting Physician Cardiology 11/28/21 Alexys Barr DC [address] [place], [place] [address] Consulting Physician Chiropractic Medicine 11/28/21 Karla Alva MD [address] [address] Surgeon Glaucoma Ophthalmology 06/28/22 documented as of this encounter
--- OUTSIDE RECORDS SUMMARY | 2025-04-05 12:06 | XMS_ITS | Encounter Summary ---
Author Organization [facility] Healthcare Address [address] [place] [address] Care Team Providers Care Photographic Intelligence Officer Name Role Phone Jordan Thapa MD Unavailable [phone] Danielle Talbot OD Unavailable [phone] Lennox Alcala MD Unavailable [phone] Alexys Barr DC Unavailable [phone] Karla Alva MD Unavailable [phone] Jalen Gastelum MD Primary Care Provider [phone] Encounter Details Date Type Department Care Team (Late st Contact Info) Description 04/05/2025 Telephone [facility] Imaging [address] [place] [address] Avis Montgomery RN Social History [...] How often do you attend chur or bahai services? 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 Gender Identity Not on file Sexual Orientation Not on file documented as of this encounter Miscellaneous Notes * Telephone Encounter - Avis Montgomery RN - 04/05/2025 11:19 AM CDT Cardiac CTA patient pre-call instructions: [x] Nothing to eat or drink 2 hours prior to the procedure [x] No caffeine 24 hours prior to procedure [] Take all essential medications as prescribed (especially the following) Cardiac medication Thyroid medication Seizure medication [] Beta sussy medication If you take medication in AM, please take prior to procedure If you take medication in PM, please take the night before the procedure [] If you take any of the following medication please hold for 48 hours Tadalafil (Cialis) Sildenafil (Viagra) Avanafil (Stendra) Vardenafil (Staxyn/Lavitra) Or any erectile dysfunctional medication [] Do you take any medications for Pulmonary Hypertension? (Think vasodilators) If yes, what are the medications? (Remember this is for awareness, we are not to advise stopping of these medications.) History of IV contrast reaction [] Yes [x] No If Yes have you received a pretreatment regimen from your physician [] Yes [] No If No please reach out to your ordering physicians for pretreatment medication Nursing: Please briefly explain the procedure to the patient. Spoke with patient: [x] Yes [] No Left voicemail with detailed information: [] Yes [] No If you have any additional questions or concerns please call [phone] (CT control room) * Telephone Encounter - Avis Montgomery RN - 04/05/2025 9:13 AM CDT Cardiac CTA patient pre-call instructions: [] Nothing to eat or drink 2 hours prior to the procedure [] No caffeine 24 hours prior to procedure [] Take all essential medications as prescribed (especially the following) Cardiac medication Thyroid medication Seizure medication [] Beta sussy medication If you take medication in AM, please take prior to procedure If you take medication in PM, please take the night before the procedure [] If you take any of the following medication please hold for 48 hours Tadalafil (Cialis) Sildenafil (Viagra) Avanafil (Stendra) Vardenafil (Staxyn/Lavitra) Or any erectile dysfunctional medication [] Do you take any medications for Pulmonary Hypertension? (Think vasodilators) If yes, what are the medications? (Remember this is for awareness, we are not to advise stopping of these medications.) History of IV contrast reaction [] Yes [] No If Yes have you received a pretreatment regimen from your physician [] Yes [] No If No please reach out to your ordering physicians for pretreatment medication Nursing: Please briefly explain the procedure to the patient. Spoke with patient: [] Yes [] No Left voicemail with detailed information: [] Yes [] No If you have any additional questions or concerns please call [phone] (CT control room) documented in this encounter Plan of Treatment Upcoming Encounters Date Type Department Care Team (Late st Contact Info) Description 04/07/2025 12:20 PM CDT Hospital Encounter [facility] Imaging [address] [address] documented as of this encounter Visit Diagnoses Not on filedocumented in this encounter Care Teams Photographic Intelligence Officer Relationship Specialty Start Date End Date Jalen Gastelum MD [address] [facility] [address] [place] [address] PCP - General Family Practice 03/05/23 Jordan Thapa MD [address] [facility] [address] [place] [address] Consulting Physician Gastroenterology 04/10/18 Danielle Talbot OD [address] [facility] [address] [place] [address] Optometry 11/28/21 Lennox Alcala MD [address] [place] [address] [address] [place], [place] [id number] Consulting Physician Cardiology 11/28/21 Alexys Barr DC [address] [place] [address] Consulting Physician Chiropractic Medicine 11/28/21 Karla Alva MD [address] [facility] [address] [place] [address] Surgeon Glaucoma Ophthalmology 06/28/22 documented as of this encounter
--- OUTSIDE RECORDS SUMMARY | 2025-04-05 12:06 | XMS_ITS | Referral Summary ---
Author Organization [facility] [address] [place] [address] Address [address] [facility] [address] [place] [address] Care Team Providers Care Social Media Coordinator Name Role Phone Jordan Thapa MD Unavailable [phone] Danielle Talbot OD Unavailable [phone] Lennox Alcala MD Unavailable [phone] Alexys Barr DC Unavailable [phone] Karla Alva MD Unavailable Jalen Gastelum MD Primary Care Provider [phone] Encounters Date Type Department Care Team Description 04/05/2025 Telephone [facility] Imaging [address] [place] [address] Avis Montgomery, RN 03/05/2025 Telephone [facility] Imaging [address] [place] [address] Avis Montgomery, RN 03/01/2025 Telephone [facility] Cardiology [address] [facility] [address] [place] [address] Sandie Lucio MD 02/15/2025 Results Follow-Up [facility] Cardiology [address] [facility] [address] [place] [address] Sandie Lucio MD Transthoracic Echo (TTE) Complete W Doppler/CF 02/11/2025 11:00 AM CDT Ancillary Procedure [facility] Cardiology at [address] [place] [phone] History of mitral valve prolapse; Palpitations 02/08/2025 Telephone [facility] Cardiology [address] [place] [address] Sandie Lucio MD 02/05/2025 Telephone [facility] Imaging [address] [address] Avis Montgomery RN 01/06/2025 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 30 each 03/18/20 25 Active tafluprost (Zioptan, PF,) 0.0015 % dropperette INSTILL 1 DROP INTO EACH EYE FOR 3 DAYS THEN OFF FOR 2 DAYS. 60 each 03/01/20 25 025 Discontinued Active Problems Problem Noted Date [...] 07/31/2023 Assessment & Plan (10/01/2023 3:36 PM [place] ATTENDANT): Lacey Waters is doing well after Left [...] HYPERCHOLESTEROLEM Assessment & Plan (12/02/2021 1:18 PM [place] ATTENDANT): BP borderline Cholesterol has increased mildly. Reticence [...] How often do you attend chur or oriental orthodox services? More than 4 times per year 11/22/2020 Do you belong to any clubs o r organizations such as orthodoxy groups, unions, fraternal or athletic groups, or [...] staff should administer the PHQ-9) 0 06/28/2022 [facility] - Occupational Stress Questionnaire Answer Date Recorded [...] on file Legal Sex Female 12:19 AM [place] ATTENDANT Gender Identity Not on file Sexual Orientation Not on file Last Filed Vital Signs Vital Sign Reading Time Taken Comments Blood Pressure 120/70 01/06/2025 1:17 PM F[place]LAND ATTENDANT Pulse 69 01/06/2025 1:17 PM F[place] ATTENDANT Temperature 36.1 C (97 F) 08/02/2023 2:10 PM CDT Respiratory Rate 17 08/02/2023 2:10 PM CDT Oxygen Saturation 97% 01/06/2025 1:17 PM F[place] ATTENDANT Inhaled Oxygen Concentration - - Weight 80.3 kg (177 lb) 01/06/2025 1:17 PM F[place]LAND ATTENDANT Height 160 cm (5' 3 ) 01/06/2025 1:17 PM F[place]LAND ATTENDANT Body Mass Index 31.35 01/06/2025 1:17 PM F[place]LAND ATTENDANT Plan of Treatment Upcoming Encounters Date Type Department Care Team (Late st Contact Info) Description 04/07/2025 12:20 PM CDT Hospital Encounter [facility] Imaging [address] [address] Procedures Procedure Name Priority Date/Time Associated Diagnosis Comments TRANSTHORACIC ECHO (TTE) COMPLETE W DOPPLER/CF WO CONTRAST Routine 02/11/2025 11:18 AM CDT History of mitral valve prolapse Palpitations ELECTROCARDIOGRAM REPORT Routine 025 2:23 PM [place] ATTENDANT Atypical chest pain Palpitations POCT LIPID PANEL Routine 01/06/2025 1:19 PM [place] ATTENDANT Hyperlipidemia LDL goal <100 SCREENING MAMMOGRAM BILATERAL W DAO Schedule Routine, Read Routine (OP Routine) 08/27/2023 4:30 PM CDT Screening mammogram, encounter for HEPATITIS C ANTIBODY Routine 11/23/2020 9:43 AM [place] ATTENDANT COLONOSCOPY Routine 05/31/2017 from Last 3 Months or Most Recently Relevant to Health Maintenance Results * TRANSTHORACIC ECHO (TTE) COMPLETE W DOPPLER/CF WO CONTRAST (02/11/2025 11:18 AM CDT) LV EF 60 % CONS SCIMAGE Anatomical Region Laterality Modality Ultrasound 02/11/2025 10:4 7 AM CDT Narrative 02/12/2025 7:03 AM CDT [facility] Cardiology [address], [address], [place] [address] P:[phone] P:[phone] Echocardiographic Report Patient Name: LACEY WATERS L : 1960 Study Date: 02/11/2025 10:47:20 AM Gender: F Tech: Location: [facility] Ref Provider: SANDIE LUCIO Height(Cm): 160 BSA: [...] FINDINGS: Interpretation Site: Exam was interpreted at [facility]. Left Ventricle: Normal left ventricular size. Normal [...] regurgitation. Electronically Signed By: Lennox Alcala MD, [facility] 02/12/2025 7:02:49 AM CDT Procedure Note Lennox Alcala MD - 02/12/2025 [facility] Cardiology [address], [address], [place] [address] P:[phone] P:[phone] Echocardiographic Report Patient Name: LACEY WATERS L [...] FINDINGS: Interpretation Site: Exam was interpreted at [facility]. Left Ventricle: Normal left ventricular size. Normal [...] regurgitation. Electronically Signed By: Lennox Alcala MD, [facility] 02/12/2025 7:02:49 AM CDT Sandie Lucio MD CV ECHO PROCEDURES Final Result * Electrocardiogram Report (01/06/2025 2:23 PM [place] ATTENDANT) Sandie Lucio MD ECG ORDERABLES Final Res ult * POCT lipid panel (01/06/2025 1:19 PM [place] ATTENDANT) Cholesterol, POC 243 mg/dL HDL, POC 57 mg/dL Triglycerides, POC 169 mg/dL LDL Cholesterol POC 152 mg/dL Chol/HDL Ratio, POC 2.7 Non-HDL Cholesterol, POC 186 mg/dL Cholesterol Total, POC 243 mg/dL Capillary blood 01/06/2025 1 :19 PM F[place]LAND ATTENDANT Sandie Lucio MD POINT OF CARE TEST [...] * Hepatitis C antibody (11/23/2020 9:43 AM [place] ATTENDANT) Hep C Ab NON-REACTI VE NON-REACT HELGA [facility] SIGNAL TO CUT-OFF 0.01 <1.00 [facility] Comment: HCV antibody was non-reactive. There is no laboratory evidence of HCV infection. In most cases, no further action is required. However, if recent HCV exposure is suspected, a test for HCV RNA (test code 78661) is suggested. For additional information please refer to http://education.Shopow/faq/SIS56p9 (This link is being provided for informational/ educational purposes only.) 11/23/2020 9:43 AM F[place] ATTENDANT 11/23/2020 9:44 AM F[place] ATTENDANT Narrative [facility] - 11/24/2020 10:20 AM [place] ATTENDANT FASTING:YES FASTING: YES Dusty Rose MD LAB MICROBIOLOGY - GENERAL ORDERABLES Final Result [facility] [facility] [address] [facility] [place] [address] * Colonoscopy (05/31/2017) Anatomical Region Laterality Modality Other Narrative 05/31/[address] Franki Thapa M.D. Historical Provider ENDOSCOPY PROCEDURES Madhuri wagner Result from Last 3 Months or Most Recently Relevant to Health Maintenance [facility]IC[facility] MEDICARE Care Teams Social Media Coordinator Relationship Specialty Start Date End Date Jalen Gastelum MD [address] [facility] 6 [place], [place] [id number] PCP - General Family Practice 03/05/23 Jordan Thapa MD [address] [facility] [address] [place] [address] Consulting Physician Gastroenterology 04/10/18 Danielle Talbot, ROSY [address] [facility] [address] [place] [address] Optometry 11/28/21 Lennox Alcala MD [address] [place] [address] Consulting Physician Cardiology 11/28/21 Alexys Barr DC [address] [place] [address] Consulting Physician Chiropractic Medicine 11/28/21 Karla Alva MD [address] [id number] Surgeon Glaucoma Ophthalmology 06/28/22
--- OUTSIDE RECORDS SUMMARY | 2025-04-05 12:06 | XMS_ITS | Encounter Summary ---
Author Organization [facility] Healthcare Address [address] [place] [address] Care Team Providers Care String Winding Machine Operator Name Role Phone Jordan Thapa MD Unavailable [phone] Danielle Talbot OD Unavailable [phone] Lennox Alcala MD Unavailable [phone] Alexys Barr DC Unavailable [phone] Karla Alva MD Unavailable [phone] Jalen Gastelum MD Primary Care Provider [phone] Encounter Details Date Type Department Care Team (Latest Contact Info) Description 02/15/2025 Results Follow-Up [facility] Cardiology [address] [place] [address] Tomer Lucio MD [address] [facility] [address] [place] [id number] Transthoracic Echo (TTE) Complete W Doppler/CF Social History Tobacco Use Types Packs/Day Years [...] How often do you attend chur or yazidi services? 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 Gender Identity Not on file Sexual Orientation Not on file documented as of this encounter Plan of Treatment Upcoming Encounters Date Type Department Care Team (Late st Contact Info) Description 04/07/2025 12:20 PM CDT Hospital Encounter [facility] Imaging [address] [place] [address] documented as of this encounter Visit Diagnoses Not on filedocumented in this encounter Care Teams String Winding Machine Operator Relationship Specialty Start Date End Date Jalen Gastelum MD [address] [facility] 6 [place] [address] PCP - General Family Practice 03/05/23 Jordan Thapa MD [address] [place] [address] Consulting Physician Gastroenterology 04/10/18 Danielle Talbot OD [address] [facility] [address] [place] [address] Optometry 11/28/21 Lennox Alcala MD [address] [place] [address] Consulting Physician Cardiology 11/28/21 Alexys Barr DC [address] [place] [address] Consulting Physician Chiropractic Medicine 11/28/21 Karla Alva MD [address] [facility] 6 [place] [address] Surgeon Glaucoma Ophthalmology 06/28/22 documented as of this encounter
--- OUTSIDE RECORDS SUMMARY | 2025-04-05 12:06 | XMS_ITS | Clinical Summary ---
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
--- OUTSIDE RECORDS SUMMARY | 2025-04-05 12:06 | XMS_ITS | Encounter Summary ---
Author Organization [facility] Address [address] [facility] [address] [place] [address] Care Team Providers Care Communication Signals Intelligence Name Role Phone Dusty Rose MD Primary Care Provider Jordan Thapa MD Unavailable [phone] Danielle Talbot OD Unavailable [phone] Lennox Alcala MD Unavailable [phone] Alexys Barr DC Unavailable Karla Alva MD Unavailable [phone] Jalen Gastelum MD Primary Care Provider [phone] Encounter Details Date Type Department Care Team (Late st Contact Info) Description 02/17/2013 Orders Only [facility] Provider, MD Rosie [address] [place] [address] Social History Tobacco Use Types Packs/Day Years Used Date Smoking Tobacco: Never Assessed Comments Unknown Sex and Gender Information Value Date Recorded Sex Assigned at Not on file 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 us Historical Provider [facility] ALIE MCKEON Final Result documented in this encounter Visit Diagnoses Not on filedocumented in this encounter Care Teams Communication Signals Intelligence Relationship Specialty Start Date End Date Dusty Rose MD PCP - General 04/21/08 03/04/23 Jalen Gastelum MD [address] [id number] PCP - General Family Practice 03/05/23 Jordan Thapa MD [address] [address] Consulting Physician Gastroenterology 04/10/18 Danielle Talbot OD [address] [address] Optometry 11/28/21 Lennox Alcala MD [address] [address] Consulting Physician Cardiology 11/28/21 Alexys Barr DC [address] [place] [address] Consulting Physician Chiropractic Medicine 11/28/21 Karla Alva MD [address] [address] Surgeon Glaucoma Ophthalmology 8/11/22 documented as of this encounter
--- OUTSIDE RECORDS SUMMARY | 2025-04-05 12:06 | XMS_ITS | Clinical Summary ---
Author Organization [facility] [address] Address [address] [place] [address] Care Team Providers Care Induction Coordination Power Engineer Name Role Phone Jordan Thapa MD Unavailable [phone] Danielle Talbot OD Unavailable [phone] Lennox Alcala MD Unavailable [phone] Alexys Barr DC Unavailable [phone] Karla Alva MD Unavailable [phone] Jalen Gastelum MD Primary Care Provider [phone] Allergies Active Allergy Reactions Criticality Noted Date [...] 07/31/2023 Assessment & Plan (10/01/2023 3:36 PM GLAZE MIXER): Lacey Waters is doing well after Left [...] HYPERCHOLESTEROLEM Assessment & Plan (12/02/2021 1:18 PM GLAZE MIXER): BP borderline Cholesterol has increased mildly. Reticence [...] Type Department Care Team Description 04/05/[address] [facility] [address] [address] [address] Avis Montgomery, RN 03/05/[address] [facility] [address] [address] [address] Avis Montgomery, RN 03/01/2025 Telephone [facility] [address] [place] [address] [address] [place] [address] Sandie Mccabe MD 02/15/2025 Results Follow-Up [facility] [address] [place] [address] [address] [place] [address] Sandie Mccabe MD Transthoracic Echo (TTE) Complete W Doppler/CF 02/11/2025 11:00 AM CDT Ancillary Procedure [facility] at [address] [place] [address] History of mitral valve prolapse; Palpitations 02/08/2025 Telephone [facility] [address] [place] [address] [address] [place] [address] Sandie Mccabe MD 02/05/[address] [facility] [address] [address] [address] Avis Montgomery, [place]MEN[place]A 01/06/2025 1:15 PM GLAZE MIXER Office Visit [facility] [address] [place] [address] [address] [place] [address] Sandie Mccabe MD History of mitral valve [...] How often do you attend chur or confucianist services? More than 4 times per year 11/22/2020 Do you belong to any clubs o r organizations such as druze groups, unions, fraternal or athletic groups, or [...] staff should administer the PHQ-9) 0 06/28/2022 [facility] Answer [...] on file Legal Sex Female 12:19 AM GLAZE MIXER Gender Identity Not on file Sexual Orientation Not on file Obstetrics History Para Term AB IAB SAB Ectopic Multiple Livin g Live Births 3 2 2 Date Outcome GA Total Labor Labor/2nd/3rd Weight Sex Type Anes PTL Cailin A1 A5 Name Clin Term Term Last Filed Vital Signs Vital Sign Reading Time Taken Comments Blood Pressure 120/70 01/06/2025 1:17 PM GLAZE MIXER Pulse 69 01/06/2025 1:17 PM GLAZE MIXER Temperature 36.1 C (97 F) 08/02/2023 2:10 PM CDT Respiratory Rate 17 08/02/2023 2:10 PM CDT Oxygen Saturation 97% 01/06/2025 1:17 PM GLAZE MIXER Inhaled Oxygen Concentration - - Weight 80.3 kg (177 lb) 01/06/2025 1:17 PM GLAZE MIXER Height 160 cm (5' 3 ) 01/06/2025 1:17 PM GLAZE MIXER Body Mass Index 31.35 01/06/2025 1:17 PM GLAZE MIXER Plan of Treatment Upcoming Encounters Date Type Department Care Team (Late st Contact Info) Description 04/07/2025 12:20 PM CDT Hospital Encounter [facility] [address] [address] [address] Health Maintenance Due Date Last Done Comments [...] 05/31/2017 Colon Cancer Screening-DNA Stool Discontinued 05/31/20 17 Colon Cancer Screening-FIT Discontinued 05/31/2017 Colon Cancer Screening-Sigmoidoscopy Discontinued 05/31/2017 Hepatitis C Screening Completed 11/23/2020 Procedures Procedure Name Priority Date/Time Associated Diagnosis Comments TRANSTHORACIC ECHO (TTE) COMPLETE W DOPPLER/CF WO CONTRAST Routine 02/11/2025 11:18 AM CDT History of mitral valve prolapse Palpitations ELECTROCARDIOGRAM REPORT Routine 025 2:23 PM GLAZE MIXER Atypical chest pain Palpitations POCT LIPID PANEL Routine 01/06/2025 1:19 PM GLAZE MIXER Hyperlipidemia LDL goal <100 SCREENING MAMMOGRAM BILATERAL W DAO Schedule Routine, Read Routine (OP Routine) 08/27/2023 4:30 PM CDT Screening mammogram, encounter for HEPATITIS C ANTIBODY Routine 11/23/2020 9:43 AM GLAZE MIXER COLONOSCOPY Routine 05/31/2017 from Last 3 Months or Most Recently Relevant to Health Maintenance Results * TRANSTHORACIC ECHO (TTE) COMPLETE W DOPPLER/CF WO CONTRAST (02/11/2025 11:18 AM CDT) LV EF 60 % CONS SCIMAGE Anatomical Region Laterality Modality Ultrasound 02/11/2025 10:4 7 AM CDT Narrative 02/12/2025 7:[address] [facility], [address], [place] [address] P:[phone] P:[phone] Echocardiographic Report Patient Name: LACEY WATERS L [...] FINDINGS: Interpretation Site: Exam was interpreted at [facility]. Left Ventricle: Normal left ventricular size. Normal [...] Note Lennox Alcala MD - 02/12/2025 [facility] [address], [address], [place] [address] P:[phone] P:[phone] Echocardiographic Report Patient Name: LACEY WATERS L [...] FINDINGS: Interpretation Site: Exam was interpreted at [facility]. Left Ventricle: Normal left ventricular size. Normal [...] MD, [facility] 02/12/2025 7:02:49 AM CDT Sandie Mccabe MD CV ECHO PROCEDURES Final Result * Electrocardiogram Report (01/06/2025 2:23 PM GLAZE MIXER) Sandie Mccabe MD ECG ORDERABLES Final Res ult * POCT lipid panel (01/06/2025 1:19 PM GLAZE MIXER) Cholesterol, POC 243 mg/dL HDL, POC 57 mg/dL Triglycerides, POC 169 mg/dL LDL Cholesterol POC 152 mg/dL Chol/HDL Ratio, POC 2.7 Non-HDL Cholesterol, POC 186 mg/dL Cholesterol Total, POC 243 mg/dL Capillary blood 01/06/2025 1 :19 PM GLAZE MIXER Sandie Mccabe MD POINT OF CARE TEST [...] * Hepatitis C antibody (11/23/2020 9:43 AM GLAZE MIXER) Hep C Ab NON-REACTI VE NON-REACT [facility] SIGNAL TO CUT-OFF 0.01 <1.00 [facility] Comment: HCV antibody was non-reactive. There is no laboratory evidence of HCV infection. In most cases, no further action is required. However, if recent HCV exposure is suspected, a test for HCV RNA (test code 08330) is suggested. For additional information please refer to [email or web address].[email or web address] (This link is being provided for informational/ educational purposes only.) 11/23/2020 9:43 AM GLAZE MIXER 11/23/2020 9:44 AM GLAZE MIXER Narrative [facility] - 11/24/2020 10:20 AM GLAZE MIXER FASTING:YES FASTING: YES Dusty Rose MD LAB MICROBIOLOGY - GENERAL ORDERABLES Final Result [facility] [address] [place] [address] * Colonoscopy (05/31/2017) Anatomical Region Laterality Modality Other Narrative 05/31/[address] Franki Thapa M.D. Historical Provider ENDOSCOPY PROCEDURES Madhuri l Result from Last 3 Months or Most Recently Relevant to Health Maintenance [facility] [id number]|2025-04-05 12:06:00|2025-04-05 12:06:00|XMS_ITS|BKG DAEMON|External Medical Summaries|[id number]|" Encounter Summary Created on: April 05, 2025 Lacey Waters : 1960 Sex: Female Author Organization [facility] Address [address] [address] Care Team Providers Care Induction Coordination Power Engineer Name Role Phone Dusty Rose MD Primary Care Provider [phone] Dusty Rose MD Primary Care Provider [phone] Jordan Thapa MD Unavailable [phone] Danielle Talbot OD Unavailable [phone] Lennox Alcala MD Unavailable [phone] Alexys Barr DC Unavailable [phone] Karla Alva MD Unavailable [phone] Jalen Gastelum MD Primary Care Provider [phone] Encounter Details Date Type Department Care Team (Late st Contact Info) Description 05/16/2007 Orders Only [facility] [place] [address] Social History Tobacco Use Types Packs/Day Years Used Date Smoking Tobacco: Never Assessed Comments Unknown Sex and Gender Information Value Date Recorded Sex Assigned at Not on file Legal Sex Female 12:19 AM GLAZE MIXER Gender Identity Not on file Sexual Orientation Not on file documented as of this encounter Plan of Treatment Upcoming Encounters Date Type Department Care Team (Late st Contact Info) Description 04/07/2025 12:20 PM CDT Hospital Encounter [facility] [address] [address] [address] documented as of this encounter Procedures Procedure Name Priority Date/Time Associated Diagnosis Comments CARDIOLOGY REPORT 05/16/2007 documented in this encounter Results * CARDIOLOGY REPORT (05/16/2007) Anatomical Region Laterality Modality Other Narrative 05/16/2007 Ordered by an unspecified provider. us Historical Provider [facility] CARDIAC [facility] PROCE MIKE Final Result documented in this encounter Visit Diagnoses Not on filedocumented in this encounter Care Teams Induction Coordination Power Engineer Relationship Specialty Start Date End Date Dusty Rose MD PCP - General 04/21/08 03/04/23 Dusty Rose MD PCP - General 02/12/07 04/20/08 Jalen Gastelum MD [address] [facility] [address] [place] [address] PCP - General Family Practice 03/05/23 Jordan Thapa MD [address] [phone] Consulting Physician Gastroenterology 04/10/18 Danielle Talbot OD [address] [phone] Optometry 11/28/21 Lennox Alcala MD [address] [address] Consulting Physician Cardiology 11/28/21 Alexys Barr DC [address] [place] [address] Consulting Physician Chiropractic Medicine 11/28/21 Karla Alva MD [address] [facility] [address] [place] [address] Surgeon Glaucoma Ophthalmology 06/28/22 documented as of this encounter "
[2025-04-05 19:49] LABS: Hematocrit 45.1 % (37.0-47.0); Hemoglobin 14.4 g/dL (12.0-15.0); Mean Corpuscular HGB Conc 31.9 g/dl (32-36); Mean Corpuscular Hemoglobin 28.7 pg (26-34); Mean Platelet Volume 10.5 fl (7.4-10.4); Platelet Count Result 180 k/mm3 (150-375); Red Blood Count 5.01 M/mm3 (4.2-5.4); Red Cell Distribution Width 14.5 % (11.5-14.5); White Blood Count 4.3 K/mm3 (4.5-10.0)
[2025-04-05 20:15] LABS: Alanine Aminotransferase 21 U/L (6-35); Albumin Level 4.3 g/dL (3.5-5.1); Alkaline Phosphatase 90 U/L (38-126); Anion Gap 7 mmol/L (4-12); Aspartate Amino Transferase 54 U/L (14-36); Bilirubin,Total 0.9 mg/dL (0.2-1.3); Blood Urea Nitrogen 8 mg/dL (7-17); Calcium 9.2 mg/dL (8.4-10.2); Carbon Dioxide 27 mmol/L (22-30); Chloride 103 mmol/L (98-107); Estimated Glomerular Filt Rate > 60; Glucose 89 mg/dL (65-110); Potassium 4.1 mmol/L (3.4-5.0); Sodium 137 mmol/L (137-145)
[2025-04-05 23:14] LABS: Hemoglobin A1C 5.7 % (<5.7)
== END 2025-04-05 11:34 | disposition home or self-care (01) ==
PROVIDERS: PCP Family Medicine; Visit Provider Family Medicine
DX: R74.01 Elevation of levels of liver transaminase levels (principal); R73.03 Prediabetes; D75.1 Secondary polycythemia; G62.9 Polyneuropathy, unspecified; R41.3 Other amnesia
CPT/HCPCS: 36415; 80053; 83036; 85027